=== PATIENT | male | born 1965 | race Caucasian/White ===

== ENCOUNTER 2017-06-24 15:24 | Inpatient (IN) | payer BC ==
[2017-06-24 17:33] LABS: INR-International Normal Ratio 1.1; PTT 30.1 SEC (22.9-36.1)
[2017-06-24 17:41] LABS: ALT (SGPT) 19 U/L (8-55); AST (SGOT) 21 U/L (5-34); Alkaline Phosphatase 79 U/L (40-150); Anion Gap 15 mmol/L (10-20); BUN (Urea Nitrogen) 26 mg/dL (8.9-20.6); Bilirubin, Total 0.2 mg/dL (0.2-1.2); Calc. Creatinine Clearance 0 mL/min (70-130); Calcium 9.8 mg/dL (7.8-10.44); Carbon Dioxide 25 mmol/L (22-29); Chloride 104 mmol/L (98-107); Estimated GFR-MDRD 41; Glucose 143 mg/dL (70-105); Potassium 4.8 mmol/L (3.5-5.1); Sodium 139 mmol/L (136-145)
[2017-06-24] MEDS ORDERED: Pantoprazole 40 MG VIAL ONE (17:41)
[2017-06-24 17:46] LABS: CKMB 1.1 ng/mL (0-6.6); Troponin I Less than 0.010 ng/mL (< 0.028)
[2017-06-24 17:48] LABS: #Lymphocytes 0.8 thou/uL (1.20-3.40); #Monocytes 0.2 thou/uL (0.11-0.59); #Neutrophils 7.3 thou/uL (1.40-6.50); %Basophils 0.1 % (0.0-1.0); %Eosinophils 0.2 % (0.0-10.0); %Lymphocytes 9.4 % (21.0-51.0); %Monocytes 2.2 % (0.0-10.0); Anisocytosis SLIGHT = 6-15 cells (100X) (0-5/hpf); Hypochromia SLIGHT = 6-15 cells (100X) (0-5/hpf); MDiff Complete? YES; Mean Corpuscular HGB CONC 29.8 g/dL (32.0-36.0); Mean Corpuscular Hemoglobin 22.1 pg (27.0-31.0); Mean Corpuscular Volume 74.3 fl (80.0-94.0); Mean Platelet Volume 9.2 fL (7.4-10.4); Microcytosis SLIGHT = 6-15 cells (100X) (0-5/hpf); Ovalocytes SLIGHT = 2-5 cells (100X) (0-1/hpf); Platelet Count 402 thou/uL (130-400); Poikilocytosis SLIGHT = 6-15 cells (100X) (0-5/hpf); RBC Distribution Width 17.8 % (11.5-14.5); Red Blood Cell (RBC) Count 3.62 mill/uL (4.70-6.10); White Blood Cell (WBC) Count 8.3 thou/uL (4.8-10.8)
[2017-06-24] MEDS ORDERED: Acetaminophen 325 MG TAB PO PRN (23:00)
[2017-06-24] MEDS ORDERED: Ondansetron ODT 4 MG TAB SL PRN (23:00)
[2017-06-24] MEDS ORDERED: Ondansetron HCl/PF 4 MG/2 ML Vial IVP PRN (23:00)
[2017-06-24 23:43] VITALS: BMI 42.1
[2017-06-25] MEDS ORDERED: Acetaminophen 500 MG TAB PO PRN (05:54)
[2017-06-25] MEDS ORDERED: Ondansetron HCl/PF 4 MG/2 ML Vial IVP PRN (05:54)
[2017-06-25] MEDS ORDERED: Ondansetron ODT 4 MG TAB PO PRN (05:54)
[2017-06-25] MEDS ORDERED: cloNIDine 0.1 MG TAB PO PRN (05:54)
[2017-06-25] MEDS ORDERED: hydrALAZINE 20 MG/ML VIAL SLOW IVP PRN (05:54)
[2017-06-25] MEDS: Sodium Chloride 0.9% 1,000 ML IV SCH ×2 (06:09→19:54)
[2017-06-25 06:38] LABS: Anion Gap 13 mmol/L (10-20); BUN (Urea Nitrogen) 27 mg/dL (8.9-20.6); Calc. Creatinine Clearance 86 mL/min (70-130); Calcium 9.3 mg/dL (7.8-10.44); Carbon Dioxide 27 mmol/L (22-29); Chloride 108 mmol/L (98-107); Estimated GFR-MDRD 42; Glucose 123 mg/dL (70-105); Iron 14 ug/dL (65-175); Iron Binding Capacity, Total 329 mcg/dL (261-462); Potassium 4.2 mmol/L (3.5-5.1); Sodium 144 mmol/L (136-145)
[2017-06-25 06:44] LABS: Band 2 % (5-11); Eosinophils 2 % (0-10); Hemoglobin 7.5 g/dL (14.0-18.0); Lymphocytes 34 % (21-51); MDiff Complete? YES; Mean Corpuscular HGB CONC 29.1 g/dL (32.0-36.0); Mean Corpuscular Hemoglobin 21.9 pg (27.0-31.0); Mean Corpuscular Volume 75.3 fl (80.0-94.0); Mean Platelet Volume 8.6 fL (7.4-10.4); Monocytes 4 % (0-10); Neutrophil 57 % (42-75); PLT Morphology Comment Appears Adequate; Platelet Count 387 thou/uL (130-400); RBC Distribution Width 17.5 % (11.5-14.5); White Blood Cell (WBC) Count 8.6 thou/uL (4.8-10.8)
--- NOTE | 2017-06-25 06:53 | HP ---
DATE OF ADMISSION: 06/25/2017 PRIMARY CARE PHYSICIAN: Dr. Judd. PRIMARY VASC TECH: Dr. Juan Moralez. CHIEF COMPLAINT: General fatigue and low blood count. HISTORY OF PRESENT ILLNESS: This is a 51-year-old male who presents to [facility] emergency department after a recent screening complete blood count through his primary cheese weigher office, showed a hemoglobin of 8. Patient's hemoglobin was apparently 14.8 in 04/2016 and currently in the 8 range as of 06/14/2017. Patient admits to increasing fatigue, palpitations, decreased activ ity and exercise tolerance. The patient also admits to severe heartburn, previously taking Prilosec, now taking [id number] remedies after his cheese weigher discontinued the Prilosec due to his chr onic kidney disease. The patient states he underwent kidney transplant 41 years prior to this evalua tion and has been stable and monitored on an outpatient basis by Dr. Juan Moralez. The patient has been taking intermittent aspirin therapy for joint and back pain as well as prednisone and Persantin e. Patient is unsure of any change to his stool color or marc blood in his stool. The patient dewayne ed any hematemesis, weight loss, or family history of colon cancer. The patient denies any prior end oscopy in the past. In the emergency room, the patient underwent screening CBC evaluation showing he moglobin of 8.0 with an MCV of 74. Coagulation panel was within normal limits and creatinine noted a t 1.77. Stool Hemoccult was negative x1 in the emergency department. The patient received Protonix 80 mg IV x1 dose and transferred to the telemetry unit for evaluation. PAST MEDICAL HISTORY: 1. Chronic kidney disease stage 3. 2. Status post renal transplant. 3. Osteoarthritis secondary to half-way steroid therapy. PAST SURGICAL HISTORY: Status post renal transplant. CURRENT MEDICATIONS: 1. Aspirin 325 mg p.o. daily. 2. Azathioprine 150 mg p.o. daily. 3. Dipyridamole 50 mg p.o. daily and 75 mg p.o. at bedtime. 4. Prednisone 30 mg p.o. q.48 hours. 5. Sodium bicarbonate two tablets p.o. q.4 hours p.r.n. ALLERGIES: No known drug allergies. FAMILY HISTORY: No inheritable diseases per patient report. SOCIAL HISTORY: Patient is , residing in the [facility]. Occasional alcohol use. N o illicit drug use. REVIEW OF SYSTEMS: The following complete review of systems was negative, unless otherwise mentioned in the HPI or below: Constitutional: Weight loss or gain, ability to conduct usual activities. Skin: Rash, itching. Eyes: Double vision, pain. ENT/Mouth: Nose bleeding, neck stiffness, pain, tenderness. Cardiovascular: Palpitations, dyspnea on exertion, orthopnea. Respiratory: Shortness of breath, wheezing, cough, hemoptysis, fever or night sweats. Gastrointestinal: Poor appetite, abdominal pain, heartburn, nausea, vomiting, constipation, or diarr hea. Genitourinary: Urgency, frequency, dysuria, nocturia. Musculoskeletal: Pain, swelling. Neurologic/Psychiatric: Anxiety, depression. Allergy/Immunologic: Skin rash, bleeding tendency. PHYSICAL EXAMINATION: VITAL SIGNS: Currently, blood pressure 156/65, pulse 111, respiratory rate 18, temperature 98.3 degr ees Fahrenheit, O2 saturation 96% on room air. GENERAL APPEARANCE: This is a 51-year-old male, alert and oriented x3, pleasant, conversan t, in no acute distress. HEENT: Pupils are equal, round, and reactive to light and accommodation. Extraocular muscles are in tact. No scleral icterus, no conjunctival injection. Nares patent. OP is clear. Teeth in fair rep air. NECK: Supple, no cervical adenopathy, no thyromegaly, no carotid bruits, no JVD appreciated. Cervic al spine with full active and passive range of motion. No meningeal signs appreciated. CHEST: Lungs are clear to auscultation bilaterally. CARDIOVASCULAR: S1, S2 with tachycardia. ABDOMEN: Protuberant, soft, nontender, nondistended. Bowel sounds are positive in all four quadrant s. There is no hepatosplenomegaly, no abdominal bruits, no rebound or guarding appreciated. EXTREMITIES: Warm and dry with good turgor. No clubbing, cyanosis or asymmetric edema appreciated. Pulses are palpable distally at the dorsalis pedis, posterior tibial, and popliteal arteries bilater ally. Capillary refill less than 2 seconds. NEUROLOGIC: Cranial nerves II through XII are grossly intact. No focal or lateralizing signs apprec iated. PERTINENT LABORATORY DATA AND X-RAY FINDINGS: Sodium 139, potassium 4.8, chloride 104, CO2 of 25, BU N 26, creatinine 1.77 with estimated GFR of 41, glucose 143, calcium 9.8. LFTs within normal limits. Albumin 4.0. CBC showed a white blood cell count 8.3, hemoglobin 8, hematocrit 27, MCV 74, platele t count 402 with 88% neutrophils. PT 14, INR 1.1, PTT 30.1. Stool Hemoccult negative x1 on 06/24/20 17. EKG dated 06/24/2017 by my interpretation shows sinus tachycardia with heart rates in the 115s. Normal R-wave progression noted in the precordial leads. Normal axis. No acute ST-T wave changes a ppreciated. ASSESSMENT AND PLAN: 1. Question of gastrointestinal bleed. The patient will be admitted to the telemetry unit. We will continue serial H&H monitoring. Consult GI service for evaluation. The patient likely will need en doscopy to include upper and lower endoscopy. Continue Pepcid 20 mg IV q.12 hours. N.p.o. except fo r medications. Continue intravenous normal saline at 100 mL per hour. 2. Acute/subacute microcytic anemia. Continue serial H&H monitoring as outlined previously. Check stool guaiacs x1. Continue intravenous normal saline as outlined previously. Continue telemetry mon itoring. 3. Sinus tachycardia. Continue IV fluids as stated previously. Suspect tachycardia secondary to an emia. 4. Chronic kidney disease stage 3. Avoid nephrotoxic agents and contrast media. Serial creatinine monitoring. 5. Elevated blood pressure. No formal diagnosis of hypertension. We will continue serial blood pre ssure monitoring and treat accordingly. 6. Chronic immunosuppressive therapy. We will continue close monitoring of patient's overall clinic al status. Resume home medication regimen when taking p.o. intake. 7. Prophylaxis. Sequential compression devices while in bed. Pepcid 20 mg IV q.12 hours. 8. Code status is full. Surrogate medical decision maker is the patient's spouse.
[2017-06-25] MEDS ORDERED: Famotidine/PF 20 mg/2ml Vial SLOW IVP SCH (09:00)
[2017-06-25] MEDS: azaTHIOprine 50 MG TAB PO SCH (09:21)
[2017-06-25] MEDS: Pantoprazole 40 MG VIAL IVP SCH ×2 (09:23→19:53)
[2017-06-25] MEDS ORDERED: GoLYTELY 4,000 ml Bottle PO SCH (18:00)
--- NOTE | 2017-06-25 19:34 | PDOC.PN ---
- Subjective Encounter Start Date: 06/25/17 Encounter Start Time: 10:30 Patient seen and examined. No new complaints. No overnight events. Feels weak. No CP/SOB. - Objective Resuscitation Status: Resuscitation Status FULL:Full Resuscitation MAR Reviewed: Yes Vital Signs & Weight: Vital Signs (12 hours) Temp Pulse Resp BP BP Pulse Ox 06/25/17 16:20 97.9 F 106 H 22 H 125/82 96 06/25/17 13:38 97.9 F 107 H 16 139/83 95 06/25/17 07:52 97.9 F 110 H 16 129/69 96 I&O: 06/24/17 06/25/17 06/26/17 06:59 06:59 06:59 Intake Total 0 Output Total 600 Balance -600 Result Diagrams: 06/25/17 06:05 06/25/17 06:05 Additional Labs: Accuchecks 06/25/17 06:32 POC Glucose 152 H Microbiology 06/25/17 09:20 Stool - Formed Stool Occult Blood (AMEENA) - Final 06/24/17 19:28 Stool - Pending Stool Occult Blood (AMEENA) - Final Laboratory Tests 06/25/17 06/25/17 06/25/17 06:05 06:08 06:08 Retic Count 3.0 H Iron 14 L TIBC 329 Ferritin 6.89 L EKG Reviewed by me: Yes (Tele ST) Phys Exam - Physical Examination Constitutional: NAD Respiratory: no wheezing, no rales, no rhonchi, clear to auscultation bilateral Cardiovascular: RRR, no rub tachycardic, no rubs/gallops Gastrointestinal: soft, non-tender, no distention, positive bowel sounds Musculoskeletal: no edema Neurological: non-focal, moves all 4 limbs Psychiatric: normal affect, A&O x 3 Dx/Plan - Plan DVT proph w/SCDs IMPRESSION: 1. GI bleeding 2. Anemia due to GI blood loss 3. Iron deficiency anemia 4. CKD 3 5. h/o Renal transplant on immunosuppressant 6. Morbid Obesity BMI >40 7. Sinus tachycardia due to #1 PLAN: * Can have ice chips * Await GI input * Change Pepcid to Protonix * HH in AM * IV Venofer (Dr Moralez will order - I d/w with Dr Moralez) * Vitals Q4 * Tele monitoring Review of Systems - Medications/Allergies Allergies/Adverse Reactions: Allergies Allergy/AdvReac Type Severity Reaction Status Date / Time No Known Allergies Allergy Verified 06/24/17 23:39 Medications: Current Medications Acetaminophen (Tylenol) 1,000 mg PO Q6H PRN PRN Reason: Headache/Fever or Mild Pain Azathioprine (Imuran) 150 mg PO DAILY [facility] Last Admin: 06/25/17 09:21 Dose: 150 mg Clonidine (Catapres) 0.1 mg PO Q4H PRN PRN Reason: Systolic BP > 180 Hydralazine HCl (Apresoline) 10 mg SLOW IVP Q4H PRN PRN Reason: Systolic BP > 180 Sodium Chloride (Normal Saline 0.9%) 1,000 mls @ 100 mls/hr IV .Q10H [facility] Last Admin: 06/25/17 06:09 Dose: 1,000 mls Ondansetron HCl (Zofran Odt) 4 mg PO Q6H PRN PRN Reason: Nausea/Vomiting Ondansetron HCl (Zofran) 4 mg IVP Q6H PRN PRN Reason: Nausea/Vomiting Pantoprazole Sodium (Protonix) 40 mg IVP Q12HR [facility] Last Admin: 06/25/17 09:23 Dose: 40 mg Polyethylene Glycol/Electrolytes (Golytely) 4,000 ml PO 1800 [facility] Stop: 06/25/17 22:00 Prednisone (Prednisone) 30 mg PO Q2D@0800 [facility] Sodium Chloride (Flush - Normal Saline) 10 ml IVF PRN PRN PRN Reason: Saline Flush
--- NOTE | 2017-06-26 00:09 | CON ---
DATE OF CONSULTATION: 06/25/2017 HISTORY OF PRESENT ILLNESS: Mr. Taylor is a 51-year-old who was admitted, sent to the hospital by his cigarette machine operator, Dr. Juan Moralez, for severe symptomatic anemia. He reports that in retrospect sin e about November, he has been feeling a little bit weaker than what he typically expects. He had routin e labs and was called and told to come to the emergency room. He had a hemoglobin of 14.8 in 04/2016 , but this year, it is around 8, MCV is low. He has had some increasing fatigue, palpitations, decre ased exercise and activity tolerance; however, he has had no melena, hematochezia, or hematemesis. Minna watkins does have some severe history of heartburn at times. He was on Prilosec previously, but this was s topped as there was some concern that possibly could cause kidney damage. He only has one kidney. Minna watkins had a renal transplant 41 years ago when he had kidney failure as a child. He had been taking some intermittent aspirin for some low back pain, also some prednisone, Persantine. He has had no black stools, melena, hematemesis, or marc and bloody stools. He has had no change in appetite or weight. He has no family history of ulcers or GI malignancies, never had a colonoscopy or upper endoscopy. PAST MEDICAL HISTORY: Chronic kidney disease stage 3, status post renal transplant 41 years ago, ost eoarthritis. PAST SURGICAL HISTORY: Renal transplant. CURRENT MEDICATIONS: Aspirin 325 daily, azathioprine 150 mg daily, 50 mg daily, 75 mg at bedt mor, prednisone 30 mg q.48 h., sodium bicarbonate 2 tablets q.4 h. ALLERGIES: None known. FAMILY HISTORY: As above. No history of colorectal cancer or liver disease. SOCIAL HISTORY: The patient is . His spouse is with him here. REVIEW OF SYSTEMS: Negative for chest pain, dyspnea on exertion, or acute bleeding. No change in ap petite or bowel movements. PHYSICAL EXAMINATION: VITAL SIGNS: Pulse 107, blood pressure is 139/93, temperature 96. LUNGS: Clear. HEART: Regular without clicks or murmurs. ABDOMEN: Soft, nontender, without any palpable hepatosplenomegaly. EXTREMITIES: No clubbing, cyanosis, or edema. PERIANAL: He does have a little wart around the perianal skin. It is unclear if this is a true wart or if this is a skin tag. It can be looked at more closely at the time of his endoscopy. LABORATORY DATA: White count is 8.6, hemoglobin is 8 on admission, 7.5 today, MCV 75. Comprehensive metabolic profile is normal. BUN and creatinine are 27 and 1.73. Iron was 14. Liver function test s were normal. ASSESSMENT: 1. Iron-deficiency anemia. 2. End-stage renal disease. 3. Perianal skin tag. Maybe looked at little more closely to make sure if this is not condyloma at time of endoscopy. PLAN: Upper and lower endoscopy tomorrow to evaluate the possible source of GI blood loss and iron-d eficiency anemia in this gentleman.
[2017-06-26] MEDS: Sodium Chloride 0.9% 1,000 ML IV SCH ×3 (01:36→23:37)
[2017-06-26 06:17] LABS: Hemoglobin 7.4 g/dL (14.0-18.0); Platelet Count 366 thou/uL (130-400)
[2017-06-26] MEDS ORDERED: predniSONE 5 MG TAB PO SCH (08:00)
[2017-06-26] MEDS: Pantoprazole 40 MG VIAL IVP SCH ×2 (08:44→20:20)
[2017-06-26] MEDS: azaTHIOprine 50 MG TAB PO SCH (08:45)
[2017-06-26] MEDS ORDERED: Lidocaine 1% PF 5 ML VIAL ONE (12:23)
[2017-06-26] MEDS ORDERED: PROPOFOL 200 MG/20 ML VIAL ONE (12:23)
[2017-06-26] MEDS ORDERED: Fentanyl 100 MCG/2 ML VIAL ONE (13:14)
--- NOTE | 2017-06-26 13:28 | EKG ---
Test Reason : Blood Pressure : / mmHG Vent. Rate : 119 BPM Atrial Rate : 119 BPM P-R Int : 162 ms QRS Dur : 082 ms QT Int : 342 ms P-R-T Axes : 049 049 063 degrees QTc Int : 481 ms Sinus tachycardia with Premature supraventricular complexes Nonspecific T wave abnormality Abnormal ECG Confirmed by ANGELA ONEIL ([id number]), video effects editor MAHIN JUAN ([id number]) on 06/26/2017 1:27:33 PM Referred By: Confirmed By:ANGELA ONEIL
--- NOTE | 2017-06-26 16:08 | OP ---
DATE OF PROCEDURE: 06/26/2017 PROCEDURE: Esophagogastroduodenoscopy and colonoscopy with snare polypectomy and biopsy and submucos al injection. Hemoclip of the polypectomy site for control of hemorrhage was performed. PROCEDURE IN DETAIL: Informed consent was obtained from the patient. The patient was sedated with t otal intravenous anesthesia. The bite block was placed and the endoscope was advanced easily to the second portion of the duodenum and retroflexion was performed in the stomach. The esophagus was norm al. The GE junction was normal. The stomach was normal including retroflexed views. The pylorus wa s normal. There is mild nonerosive duodenitis in the first portion of the duodenum. The second port ion of the duodenum was normal. The air was suctioned from the stomach. The patient was turned arou nd. Rectal exam revealed a wart in the perianal area. This measures around 7 mm estimated. The rec claudio exam was otherwise normal. The colonoscope was advanced to the cecum where the ileocecal valve a nd appendiceal orifice were clearly identified. The preparation quality was good overall. There was a 1 cm polyp in the distal ascending colon. This was removed by snare cautery polypectomy in two pi eces. Two Hemoclips were placed over the polypectomy site to control immediate bleeding. Good hemos tasis was confirmed. There was a 5 cm mass at the hepatic flexure. Multiple biopsies were obtained. A tattoo was placed on the distal margin of the mass. The tattoo was placed at 2 sites across from each other. The remainder of the colonic mucosa was normal. Retroflexed views in the rectum were n ormal. IMPRESSION: 1. Nonerosive duodenitis. 2. Small wart in the perianal area. 3. A 1-cm polyp removed from the distal ascending colon. 4. Mass at the hepatic flexure, biopsied and marked with tattoo. 5. Moderate diverticulosis of the sigmoid and descending colon. RECOMMENDATIONS: 1. Check CEA. 2. CT scan of the abdomen and pelvis with contrast to evaluate for metastatic disease. His estimate d GFR is 42. I will check with his machine captain, Dr. Moralez prior to ordering that CT. 3. General Surgery consultation.
--- NOTE | 2017-06-26 18:49 | CT ---
CT OF THE ABDOMEN AND PELVIS WITH IV CONTRAST 06/26/17 INDICATION: History of hepatic flexure mass seen on colonoscopy and renal transplant. COMPARISON: None. FINDINGS: There is mild bibasilar atelectasis. There is fatty infiltration of the liver. The spleen, pancreas a nd adrenal glands are normal appearing. The havasupai kidneys are atrophic. No free fluid is evident. There is a right pelvic renal transplant with multiple peripelvic cysts. No hydronephrosis is evident . There is a 3.5 x 3.4 cm intraluminal mass involving the hepatic flexure. No definite pericolonic infl ammatory changes evident. No enlarged lymph nodes are seen near the hepatic flexure. There is scattered degenerative and osteoarthritic change. IMPRESSION: 1. Hepatic flexure mass consistent with patient's known colonic malignancy. 2. No CT evidence to suggest regional or metastatic disease of the abdomen and pelvis. 3. Fatty liver. 4. Right pelvic renal transplant with multiple peripelvic cysts. 5. Atrophic havasupai kidneys. POS: JASVIR
[2017-06-26] MEDS ORDERED: metroNIDAZOLE 500 MG TAB PO SCH (19:00)
[2017-06-26] MEDS ORDERED: Neomycin 500 mg Tablet PO SCH (20:00)
--- NOTE | 2017-06-26 21:34 | CON ---
DATE OF CONSULTATION: 06/26/2017 REASON FOR CONSULTATION: Hepatic flexure of colon mass. HISTORY OF PRESENT ILLNESS: This is a 51-year-old male with a history of kidney transplant as a chil d who now presents with a history of increased fatigue, dizziness, found to have a low hemoglobin by his routing clerk, and admitted to the hospital for further workup. Colonoscopy today by Dr. Benton dior hepatic flexure colon mass that was tattooed and biopsied. He has had CT which shows the mass in the right colon, but no evidence of metastatic disease. I have been asked to see him for elective colon resection. He has no pain, no obvious blood in stool, no weight loss, fever, chills, anorexia . PAST MEDICAL HISTORY: Includes chronic kidney disease and transplanted organ, osteoarthritis. PAST SURGICAL HISTORY: Renal transplant right pelvis. MEDICINES TAKEN DAILY: Aspirin, azathioprine, dipyridamole, prednisone, sodium bicarbonate. ALLERGIES: No known drug allergies. SOCIAL HISTORY: , lives in [place]. No alcohol or other drugs. REVIEW OF SYSTEMS: Ten system review of systems otherwise negative unless described above. PHYSICAL EXAMINATION: HEENT: Sclerae are anicteric. Oropharynx clear. NECK: No lymphadenopathy. LUNGS: Clear. HEART: Regular rate and rhythm. ABDOMEN: Soft, protuberant. Well-healed right lower quadrant oblique incision, a few paramedian inc isions. No obvious hernias. EXTREMITIES: No ischemia or edema to extremities. LABORATORY AND X-RAY FINDINGS: Hemoglobin 7.4, creatinine 1.73. CT scan, no obvious metastatic dise ase. ASSESSMENT: Right colon mass, likely colon cancer. PLAN: Elective laparoscopic right colectomy. Risks, benefits, alternative treatments were discussed . Ideally, this would be something I could do when I return to town in a weak, we will arrange for t hat to be done. I have written prescriptions for his colon prep to be done the day before surgery, a ntibiotics and the mechanical prep. We will have 1 unit transfuse before discharge since he is sympt omatic.
[2017-06-27 03:12] LABS: Bilirubin Negative (Negative); Blood, Urine Negative (Negative); Clarity CLEAR (Clear); Glucose, Urine (Dipstick) Negative (Negative); Leukocyte Negative (Negative); Nitrite Negative (Negative); Protein, Urine (Dipstick) 100 mg/dL (Neg-Trace); Specific Gravity, Urine 1.033 (1.002-1.036); Urobilinogen 0.2 mg/dL (0.2-1.0)
[2017-06-27 03:15] LABS: Bacteria/HPF None Seen HPF (None Seen); Hyaline Casts/LPF 0-3 HYALINE CAST LPF (0-3 Hyaline); RBC/HPF 0-3 HPF (0-3); Squamous Epithelial None Seen HPF (0-3); WBC/HPF 0-3 HPF (0-3)
[2017-06-27 06:52] LABS: Albumin 3.5 g/dL (3.5-5.0); Anion Gap 12 mmol/L (10-20); BUN (Urea Nitrogen) 16 mg/dL (8.9-20.6); BUN/Creatinine Ratio 12.21; Calc. Creatinine Clearance 116 mL/min (70-130); Calcium 7.7 mg/dL (7.8-10.44); Carbon Dioxide 25 mmol/L (22-29); Chloride 111 mmol/L (98-107); Estimated GFR-MDRD 58; Glucose 109 mg/dL (70-105); Phosphorus 3.1 mg/dL (2.3-4.7); Potassium 4.3 mmol/L (3.5-5.1); Sodium 144 mmol/L (136-145)
[2017-06-27] MEDS: azaTHIOprine 50 MG TAB PO SCH (08:03)
[2017-06-27] MEDS: Sodium Chloride 0.9% 1,000 ML IV SCH (08:03)
[2017-06-27] MEDS: Pantoprazole 40 MG VIAL IVP SCH (08:03)
[2017-06-27 08:25] LABS: #Eosinphils 0.2 thou/uL (0.0-0.7); #Lymphocytes 1.5 thou/uL (1.20-3.40); #Monocytes 0.9 thou/uL (0.11-0.59); #Neutrophils 5.7 thou/uL (1.40-6.50); %Basophils 0.3 % (0.0-1.0); %Eosinophils 2.4 % (0.0-10.0); %Monocytes 11.3 % (0.0-10.0); Hemoglobin 7.8 g/dL (14.0-18.0); MDiff Complete? YES; Mean Corpuscular HGB CONC 29.6 g/dL (32.0-36.0); Mean Corpuscular Hemoglobin 23.1 pg (27.0-31.0); Mean Corpuscular Volume 77.9 fl (80.0-94.0); Mean Platelet Volume 8.6 fL (7.4-10.4); Microcytosis SLIGHT = 6-15 cells (100X) (0-5/hpf); PLT Morphology Comment Appears Adequate; Platelet Count 366 thou/uL (130-400); Polychromasia SLIGHT = 2-3 cells (100X) (0-2/hpf); RBC Distribution Width 18.9 % (11.5-14.5); Red Blood Cell (RBC) Count 3.39 mill/uL (4.70-6.10); White Blood Cell (WBC) Count 8.3 thou/uL (4.8-10.8)
[2017-06-27] MEDS ORDERED: metroNIDAZOLE 500 MG TAB PO SCH (09:00)
--- NOTE | 2017-06-27 09:37 | PRG ---
DATE OF SERVICE: 06/27/2017 SUBJECTIVE: Mr. Taylor has no complaints. He had 1 unit of blood last night and he feels better. No abdominal pain, no bloody stools, hemodynamically stable. Abdomen exam is unchanged. LABORATORY DATA: Hemoglobin this morning is 7.8. ASSESSMENT: Hepatic flexure of colon mass, likely malignant. CT negative for metastatic disease. PLAN: I wrote prescriptions for his prep, it is in the chart. He will be discharged today. My offi ce is going to set him up for to come back in a week for his elective laparoscopic right colectomy.
--- NOTE | 2017-06-27 12:03 | PRG ---
DATE OF SERVICE: 06/27/2017 SUBJECTIVE: Mr. Taylor has no acute complaints today. He feels better after the blood transfusion. OBJECTIVE: VITAL SIGNS: Temperature 98.4, pulse 109, and blood pressure 132/68. GENERAL: He is in no acute distress, awake, and alert. LUNGS: Clear to auscultation bilaterally. HEART: Regular rate and rhythm, mildly tachycardic. ABDOMEN: Soft, nontender, nondistended. Bowel sounds are present. EXTREMITIES: No lower extremity edema. LABORATORY DATA: Creatinine 1.31, hemoglobin is 7.8 after transfusion up from 7.4 yesterday. IMPRESSION: 1. Right-sided colon mass, most likely malignant tumor. CT scan does not show signs of metastatic d isease. 2. Iron deficiency anemia. RECOMMENDATIONS: 1. We would give another unit of blood and he still tachycardic and he had marked clinical improveme nt after the first unit and that he feels much more energetic following the last unit. 2. Plan is for colon resection. This is to be done next week when Dr. Goldman returns. The patient should be able to discharge home today.
[2017-06-27 15:02] VITALS: BP 166/80; TEMP 98.1
--- NOTE | 2017-06-27 18:25 | DIS ---
DATE OF ADMISSION: 06/24/2017 DATE OF DISCHARGE: 06/27/2017 ADMITTING DIAGNOSIS: Acute blood loss from lower gastrointestinal tract. DISCHARGE DIAGNOSIS: Mass in the colon causing the gastrointestinal bleed. SECONDARY DIAGNOSES: 1. Anemia of acute blood loss. 2. Chronic kidney disease stage 3. 3. Elevated blood pressures. 4. Chronic immunosuppressive therapy. HISTORY OF PRESENT ILLNESS AND HOSPITAL COURSE: In brief, this is a 51-year-old male who p resented to [facility] Emergency Department for screening of his complete blood count and wa s noted to have drop in hemoglobin to 8, which was actually 14.8 last month. The patient was also no martha to have worsening fatigue and decreased activity and reduced exercise tolerance. The patient den ies taking any NSAIDs. The patient denies having any black stools or any marc blood in the stool. He denies having any endoscopy or colonoscopies in the past. Based on his drop in the hemoglobin, st ool occult was done which was negative initially in the ER, but then because of his complicated histo ry, GI was consulted, and the patient underwent upper GI and lower GI endoscopy. Upper GI endoscopy was completely normal and the patient was proceeded with a lower GI and they did found a mass in the colon and plan was for the colon resection through robotics as Dr. Goldman was not available who is t he only surgeon who does antibiotic procedures. The patient was to return back next week to get the procedure done, that is on of the following week. The patient had a CT of the abdomen to ru le out any metastatic lesions, which ruled out any evidence of metastatic disease. The patient had a drop in hemoglobin to 7.8, so he was started on 2 units of blood transfusion. The patient is discha rged after the blood transfusion. The patient was stable on the day of discharge. He had initially elevated blood pressures, but it was most likely due to the wrong size of the cuff. The patient was stable and was discharged home in stable condition. CONSULTANTS INVOLVED IN HIS CARE: Dr. Juan José Bhardwaj from Gastroenterology and Dr. Heladio Raygoza from Hematology. PHYSICAL EXAMINATION: On the day of discharge: VITAL SIGNS: Blood pressures are 134/64, heart rate is 60, respirations is 98% on room air. GENERAL: The patient is moderately built and moderately nourished. He does not appear to be in acut e distress at this time. He is alert, oriented x3. HEENT: Atraumatic, normocephalic. PERRLA. Extraocular movements intact. CARDIOVASCULAR: S1, S2 normal. No murmurs, rubs or gallops. LUNGS: Bilateral air entry was equal. No wheezing, no crackles. ABDOMEN: Distended, nontender, no guarding, no rebound tenderness. Bowel sounds normal. DISCHARGE MEDICATIONS: 1. Azathioprine 50 mg 1 tablet daily. 2. Prednisone 5 mg tablet, the patient takes 6 tablets every 48 hours. 3. Aspirin 325 mg daily. 4. Dipyridamole 50 mg tablet daily and 75 mg tablet in the nighttime. 5. Sodium bicarbonate 2 tablets every 4 hours. DISCHARGE INSTRUCTIONS: 1. Continue activity as tolerated. Advised to follow up with General Surgery next for a ro botic colon resection. 2. Follow up with GI in 1-2 weeks and advised the patient to follow up with primary care physician lacho hale 2 days to check on his blood pressures. 3. Continue with the general diet. I spent 35 minutes with this patient.
--- NOTE | 2017-07-02 10:03 | PQF ---
CARLEEMITCHELL DANILO PRATT DO [id number] CLINICAL DOCUMENTATION CLARIFICATION FORM: POST DISCHARGE Based on the pathologic diagnosis dated 06/29/17, "Moderately Differentiated Colonic Adenocarcinoma" has been reported. Please clarify if "Mass in the colon " stated on DC summary can be further specified. PATH REPORT 06/29/17; "Large intestine, hepatic flexure mass, endoscopic biopsy: Invasive moderately differentiated Colonic Adenocarcinoma." PN 06/27/17 GI; "Right-sided colon mass, most likely malignant tumor". "Plan is for colon resection". PN 06/27/17 General Surg; "Hepatic flexure of colon mass, likely malignant." Please check appropriate box(s): [ ] I concur with the pathological findings. [ ] I do not concur with the pathological findings. [ ] Other diagnosis [ ] Unable to determine In addition, please specify: Present on Admission (POA): [ ] Yes [ ] No [ ] Unable to determine Please exercise your independent, professional judgment in responding to the clarification form. Clinical indicators are provided on the bottom of this form for your review. Thank you. CLINICAL INDICATORS - SIGNS / SYMPTOMS/ LABS Acute blood loss anemia GI hemorrhage General fatigue Hemoglobin 8, Hematocrit 27, MCV 74. RISK FACTORS Chronic Immunosuppressive therapy Kidney transplant status TREATMENT Blood transfusion EGD Colonoscopy with biopsy and polypectomy Planned colon resection CT abdomen, r/o metastasis (This form is maintained as a part of the permanent medical record) 2014 [email or web address]. All Rights Reserved [email or web address] [phone] Old query unanswered. MTDD
== END 2017-06-27 15:09 | disposition home or self-care (01) | DRG 378 ==
LOC: ERS 15:24 → 2NO 22:52
PROVIDERS: ADMIT Family Medicine; ATTEND Family Medicine
PROC: 0DBL8ZX Excision of Transverse Colon, Via Natural or Artificial Opening Endoscopic, Diagnostic (ICD-10-PCS; principal; 2017-06-26)
PROC: 0DBK8ZZ Excision of Ascending Colon, Via Natural or Artificial Opening Endoscopic (ICD-10-PCS; 2017-06-26)
PROC: 0DJ08ZZ Inspection of Upper Intestinal Tract, Via Natural or Artificial Opening Endoscopic (ICD-10-PCS; 2017-06-26)
PROC: 30233N1 Transfusion of Nonautologous Red Blood Cells into Peripheral Vein, Percutaneous Approach (ICD-10-PCS; 2017-06-26)
PROC: 30233N1 Transfusion of Nonautologous Red Blood Cells into Peripheral Vein, Percutaneous Approach (ICD-10-PCS; 2017-06-27)
DX: K92.2 Gastrointestinal hemorrhage, unspecified (principal); D62 Acute posthemorrhagic anemia; E66.01 Morbid (severe) obesity due to excess calories; N18.3 Chronic kidney disease, stage 3 (moderate); Z94.0 Kidney transplant status; Z68.41 Body mass index [BMI] 40.0-44.9, adult; A63.0 Anogenital (venereal) warts; D50.9 Iron deficiency anemia, unspecified; K63.9 Disease of intestine, unspecified; Z79.899 Other long term (current) drug therapy; R03.0 Elevated blood-pressure reading, without diagnosis of hypertension; K29.80 Duodenitis without bleeding; K63.5 Polyp of colon; M19.93 Secondary osteoarthritis, unspecified site; T38.0X5S Adverse effect of glucocorticoids and synthetic analogues, sequela; K57.30 Diverticulosis of large intestine without perforation or abscess without bleeding
CPT/HCPCS: 36415; 36416; 36430; 74177; 80048; 80053; 80069; 81003; 81015; 82274; 82378; 82553; 82570; 82728; 83540; 83550; 84484; 85007; 85014; 85018; 85025; 85027; 85046; 85049; 85610; 85730; 86850; 86900; 86901; 88305; 93005; 96374; C9113; J2001; J2704; J3010; J7500; P9016

== ENCOUNTER 2017-07-02 09:56 | Outpatient (CLI) | payer BC ==
[2017-07-02 11:06] LABS: #Eosinphils 0.2 thou/uL (0.0-0.7); #Monocytes 0.5 thou/uL (0.11-0.59); #Neutrophils 7.3 thou/uL (1.40-6.50); %Basophils 0.4 % (0.0-1.0); %Eosinophils 1.7 % (0.0-10.0); %Lymphocytes 10.8 % (21.0-51.0); %Monocytes 5.3 % (0.0-10.0); %Neutrophils 81.7 % (42.0-75.0); Hemoglobin 10.7 g/dL (14.0-18.0); Mean Corpuscular HGB CONC 29.8 g/dL (32.0-36.0); Mean Corpuscular Hemoglobin 23.1 pg (27.0-31.0); Mean Corpuscular Volume 77.7 fl (80.0-94.0); Platelet Count 368 thou/uL (130-400); RBC Distribution Width 19.1 % (11.5-14.5); Red Blood Cell (RBC) Count 4.63 mill/uL (4.70-6.10)
[2017-07-02 11:29] LABS: Hemoglobin A1c 5.5 % (4.0-6.0)
[2017-07-02 11:36] LABS: Anion Gap 13 mmol/L (10-20); BUN (Urea Nitrogen) 29 mg/dL (8.9-20.6); Calc. Creatinine Clearance 0 mL/min (70-130); Calcium 9.6 mg/dL (7.8-10.44); Carbon Dioxide 25 mmol/L (22-29); Chloride 104 mmol/L (98-107); Estimated GFR-MDRD 40; Glucose 109 mg/dL (70-105); Potassium 4.9 mmol/L (3.5-5.1); Sodium 137 mmol/L (136-145)
== END 2017-07-02 09:57 | disposition home or self-care (01) ==
LOC: LABBT 09:56
PROVIDERS: ATTEND Surgery
DX: Z01.812 Encounter for preprocedural laboratory examination (principal); K63.89 Other specified diseases of intestine
CPT/HCPCS: 80048; 83036; 85025

== ENCOUNTER 2017-07-02 10:15 | Inpatient (IN) | payer BC ==
--- NOTE | 2017-07-05 10:44 | HP ---
CHIEF COMPLAINT: Tumor. HISTORY OF PRESENT ILLNESS: This is a 51-year-old male with a history of recent GI bleed who present s with the colonoscopy showing hepatic flexure of colon mass. Biopsy reveals moderately differentiat ed invasive adenocarcinoma. He presents for colon resection. CT scan showed no obvious metastatic d isease. PAST MEDICAL HISTORY: Includes; 1. Stage 3 chronic kidney disease. 2. Status post renal transplant. 3. Sequelae of long-term steroid use. PAST SURGICAL HISTORY: Renal transplant, right pelvis. There are well-healed open peritoneal dialys is catheter incisions without hernia. MEDICINES: Aspirin, azathioprine, dipyridamole, prednisone and sodium bicarbonate. ALLERGIES: No known drug allergies. SOCIAL HISTORY: . Occasional alcohol. No other drugs. No smoking. REVIEW OF SYSTEMS: Otherwise, negative unless described above. PHYSICAL EXAMINATION: HEENT: Sclerae are anicteric. Oropharynx clear. NECK: No lymphadenopathy. CHEST: Clear. HEART: Regular rate and rhythm. ABDOMEN: Soft, protuberant. EXTREMITIES: No ischemia or edema to extremities. LABORATORY AND X-RAY FINDINGS: Hemoglobin is 10 now and platelet count is 368. Creatinine is 1.8, w hich is his norm. Pathology from biopsy reveals moderately differentiated adenocarcinoma. CT on shows hepatic flexure mass, no CT evidence of metastatic disease, right pelvic renal transplant, f atty liver, atrophic [place] kidneys. ASSESSMENT: 1. Colon cancer, clinical stage T2N0M0. 2. History of renal transplant, on chronic steroids. PLAN: Laparoscopic right colectomy. Risks, benefits, alternatives discussed. He underwent electromechanical technologist al and antibiotic bowel prep.
[2017-07-05] MEDS ORDERED: Bupivacaine/Epinephrine 0.25% 30 ML VIAL ONE (10:55)
[2017-07-05 10:57] LABS: #Eosinphils 0.2 thou/uL (0.0-0.7); #Lymphocytes 1.8 thou/uL (1.20-3.40); #Neutrophils 5.1 thou/uL (1.40-6.50); %Basophils 0.1 % (0.0-1.0); %Eosinophils 2.2 % (0.0-10.0); %Neutrophils 63.7 % (42.0-75.0); Hemoglobin 10.3 g/dL (14.0-18.0); Mean Corpuscular HGB CONC 30.2 g/dL (32.0-36.0); Mean Corpuscular Hemoglobin 23.2 pg (27.0-31.0); Mean Corpuscular Volume 76.9 fl (80.0-94.0); Mean Platelet Volume 9.4 fL (7.4-10.4); Platelet Count 383 thou/uL (130-400); RBC Distribution Width 19.3 % (11.5-14.5); Red Blood Cell (RBC) Count 4.46 mill/uL (4.70-6.10)
[2017-07-05] MEDS ORDERED: cefOXitin 2 GM, Syringe 1 ML in Sterile Water 10 ML SLOW IVP SCH (11:00)
[2017-07-05] MEDS ORDERED: Midazolam HCl 2 mg/2 ml Vial ONE ×2 (11:45→11:49)
[2017-07-05] MEDS ORDERED: Indocyanine Green 25 MG/10 ML VIAL ONE (11:45)
[2017-07-05] MEDS ORDERED: Ketamine 50 MG/ML VIAL ONE (11:45)
[2017-07-05] MEDS ORDERED: Fentanyl 100 MCG/2 ML VIAL ONE ×4 (11:45→15:52)
[2017-07-05] MEDS ORDERED: Albumin 5% 500 ML ONE (11:45)
[2017-07-05] MEDS ORDERED: Dexamethasone 4 mg/ml Vial ONE (11:49)
[2017-07-05 11:56] LABS: Hypochromia SLIGHT = 6-15 cells (100X) (0-5/hpf); MDiff Complete? YES; Microcytosis SLIGHT = 6-15 cells (100X) (0-5/hpf); Polychromasia MODERATE = 3-4 cells (100X) (0-2/hpf)
[2017-07-05] MEDS ORDERED: cefOXitin 2 GM VIAL ONE (14:10)
[2017-07-05] MEDS ORDERED: Meperidine HCl/PF 25 MG/ML VIAL SLOW IVP PRN (14:38)
[2017-07-05] MEDS ORDERED: Morphine Sulfate 2 MG/ML SYRINGE SLOW IVP PRN (14:38)
[2017-07-05] MEDS ORDERED: HYDROmorphone 2 MG/ML VIAL SLOW IVP PRN (14:38)
[2017-07-05] MEDS ORDERED: Promethazine HCl 25 MG/ML VIAL SLOW IVP PRN (14:38)
[2017-07-05] MEDS ORDERED: HYDROmorphone 10 mg/100 ml CADD IVPB PRN (15:06)
[2017-07-05] MEDS ORDERED: Ondansetron HCl/PF 4 MG/2 ML Vial IVP PRN ×2 (15:06→18:21)
[2017-07-05] MEDS ORDERED: diphenhydrAMINE 50 MG/ML VIAL IM PRN (15:06)
[2017-07-05] MEDS ORDERED: diphenhydrAMINE 50 MG/ML VIAL IVP PRN (15:06)
[2017-07-05] MEDS ORDERED: Naloxone HCl 0.4 mg/ml Vial IV PRN (15:06)
[2017-07-05] MEDS ORDERED: Zolpidem Tartrate 5 MG TAB PO PRN (15:06)
[2017-07-05] MEDS ORDERED: Promethazine HCl 25 MG/ML VIAL IM PRN ×2 (15:06→18:21)
[2017-07-05] MEDS ORDERED: diphenhydrAMINE 25 MG CAP PO PRN (15:06)
[2017-07-05] MEDS ORDERED: Communication Order-Pharmacy FS SCH (15:15)
[2017-07-05] MEDS ORDERED: Bupivacaine HCl 0.5%/Epinephrine 1:200,000/PF 30 ml Vial ONE (16:41)
[2017-07-05] MEDS ORDERED: PROPOFOL 200 MG/20 ML VIAL ONE (17:16)
[2017-07-05] MEDS ORDERED: PHENYLEPHRINE-NS 100 MCG/ML 10 ML SYRINGE ONE (17:16)
[2017-07-05] MEDS ORDERED: Dexamethasone 20 MG/5 ML VIAL ONE ×2 (17:16)
[2017-07-05] MEDS ORDERED: Glycopyrrolate 0.2 MG/ML 5 ML SYRINGE ONE (17:16)
[2017-07-05] MEDS ORDERED: Ondansetron HCl/PF 4 MG/2 ML Vial ONE (17:16)
[2017-07-05] MEDS ORDERED: Lidocaine 1% PF 5 ML VIAL ONE (17:16)
[2017-07-05] MEDS ORDERED: Fentanyl 100 MCG/2 ML VIAL SLOW IVP PRN ×2 (18:21)
[2017-07-05] MEDS ORDERED: hydrALAZINE 20 MG/ML VIAL SLOW IVP PRN (18:21)
[2017-07-05] MEDS ORDERED: Insulin Regular 300 UNITS/3 ML VIAL SC PRN (18:21)
[2017-07-05 21:14] VITALS: BMI 41.7
[2017-07-05] MEDS: Sodium Chloride 0.9% 1,000 ML IV SCH (21:28)
[2017-07-05] MEDS: cefOXitin 2 GM, Syringe 1 ML in Sterile Water 10 ML SLOW IVP SCH (21:29)
[2017-07-05] MEDS: Acetaminophen 1,000 MG in Premix Bag 1 BAG IVPB SCH (21:29)
[2017-07-05] MEDS: Famotidine/PF 20 mg/2ml Vial SLOW IVP SCH (21:30)
[2017-07-05] MEDS: Famotidine 20 MG TAB PO SCH (21:30)
[2017-07-05] MEDS ORDERED: cefOXitin 2 GM in Sodium Chloride 0.9% 100 ML IVPB SCH (22:00)
[2017-07-05] MEDS ORDERED: azaTHIOprine 50 MG TAB PO SCH (22:30)
[2017-07-05] MEDS: Hydrocortisone Sod Succ/PF 100 mg/2 ml Vial IVP SCH (23:02)
[2017-07-06] MEDS: Acetaminophen 1,000 MG in Premix Bag 1 BAG IVPB SCH ×3 (02:01→14:20)
[2017-07-06] MEDS: Sodium Chloride 0.9% 1,000 ML IV SCH ×2 (02:02→12:08)
[2017-07-06] MEDS: cefOXitin 2 GM, Syringe 1 ML in Sterile Water 10 ML SLOW IVP SCH (05:06)
[2017-07-06] MEDS: Hydrocortisone Sod Succ/PF 100 mg/2 ml Vial IVP SCH ×3 (05:06→21:11)
[2017-07-06 07:15] LABS: Anion Gap 14 mmol/L (10-20); BUN (Urea Nitrogen) 30 mg/dL (8.9-20.6); Calc. Creatinine Clearance 61 mL/min (70-130); Calcium 8.4 mg/dL (7.8-10.44); Carbon Dioxide 24 mmol/L (22-29); Chloride 107 mmol/L (98-107); Estimated GFR-MDRD 29; Glucose 127 mg/dL (70-105); Potassium 5.2 mmol/L (3.5-5.1); Sodium 140 mmol/L (136-145)
[2017-07-06 07:57] LABS: #Lymphocytes 0.8 thou/uL (1.20-3.40); #Monocytes 1.1 thou/uL (0.11-0.59); #Neutrophils 11.5 thou/uL (1.40-6.50); %Basophils 0.2 % (0.0-1.0); %Eosinophils 0.1 % (0.0-10.0); %Lymphocytes 5.9 % (21.0-51.0); %Neutrophils 85.8 % (42.0-75.0); Hemoglobin 8.6 g/dL (14.0-18.0); Hypochromia MODERATE=16-30 cells (100X) (0-5/hpf); MDiff Complete? YES; Mean Corpuscular HGB CONC 29.4 g/dL (32.0-36.0); Mean Corpuscular Hemoglobin 23.2 pg (27.0-31.0); Mean Corpuscular Volume 78.8 fl (80.0-94.0); Mean Platelet Volume 9.3 fL (7.4-10.4); PLT Morphology Comment Appears Adequate; Platelet Count 320 thou/uL (130-400); Polychromasia MODERATE = 3-4 cells (100X) (0-2/hpf); RBC Distribution Width 19.1 % (11.5-14.5); Red Blood Cell (RBC) Count 3.72 mill/uL (4.70-6.10); White Blood Cell (WBC) Count 13.4 thou/uL (4.8-10.8)
[2017-07-06] MEDS: azaTHIOprine 50 MG TAB PO SCH (08:55)
[2017-07-06] MEDS: Famotidine/PF 20 mg/2ml Vial SLOW IVP SCH ×2 (08:55→21:11)
[2017-07-06] MEDS: Famotidine 20 MG TAB PO SCH ×2 (09:05→21:10)
--- NOTE | 2017-07-06 09:56 | PRG ---
DATE OF SERVICE: 07/06/2017 SUBJECTIVE. Mr. Taylor's pain is well controlled, he is on P[employer]ENT. He likes the IV Tylenol as well. He has ambulated once this morning. His catheter is out, but he had not urinated yet. No nausea, but not passing any gas either. PHYSICAL EXAMINATION: VITAL SIGNS: His pulse is 95, blood pressure is 143/89, temperature 98.9. He is afebrile overnight. Urine output 350 overnight. ABDOMEN: Soft , appropriately tender. Incision is healing well without evidence of infection. LABORATORY DATA: White blood cell count is 13, hemoglobin 8.6, platelet count is 320. Sodium 140, p otassium 5.2, creatinine is 2.40. Sugar is 127. ASSESSMENT: Postop day #1 right colectomy, creatinine up to 2.4. His baseline is in the upper ones 1.8 or so. PLAN: Continue IV fluids overnight, but advance to full liquids. Recheck his chemistry in the [facility]. He is covered with hydrocortisone for now.
--- NOTE | 2017-07-06 12:31 | OP ---
DATE OF PROCEDURE: 07/05/2017 PREOPERATIVE DIAGNOSIS: Right colon cancer. POSTOPERATIVE DIAGNOSIS: Right colon cancer. PROCEDURE: Laparoscopic converted to open right colectomy with isoperistaltic ileocolonic anastomosi s. SURGEON: Dr. Devin Goldman. ANESTHESIA: General. ESTIMATED BLOOD LOSS: 50 mL COMPLICATIONS: None. TECHNIQUE: The patient was taken to the operating room and placed supine on the table. After genera l anesthetic was obtained, Velez was placed. The abdomen was prepped and draped in a sterile fashion . Left subcostal 11 mm Optiview trocar placed without injury. High-flow pneumoperitoneum was obtain ed. Robot camera port was placed left of the umbilicus. The patient had multiple adhesions in the p rc. The omentum was not able to be raised up. Some of these were taken down sharply. The patien t had transplanted kidney in the right pelvis. This was pushing the small bowel up. There were some adhesions in this area as well. The patient had a significant amount of intra-abdominal fat that ma de visualization of the medial aspect of the right colon very difficult, the decision was made to ope n. A midline incision was made. All ports were removed. The right colon was mobilized along the wh ite line of Toldt. The hepatic flexure was mobilized in the usual fashion using the impact LigaSure. The peritoneum was incised on the medial aspect of the ascending colon. DIAMOND-75 was fired across th e terminal ileum, reload was fired across the proximal transverse colon. The tattooed area where the colon cancer was within the mid ascending colon. The ileocolic vessels were taken low using Gunjan c lamps and silk ties. The rest of the mesentery was taken using the impact LigaSure. The duodenum wa s found and excluded from the dissection. Specimen was opened on the back table to reveal the large ascending colon mass. The small bowel was brought up against the mid transverse colon in isoperistal tic fashion. Silk sutures were used to hold the antimesenteric surfaces on each side. Enterotomy wa s made on the small bowel and a colotomy was made and then a [id number] anastomosis performed with a DIAMOND-75 stapler. The common enterotomy was closed transversely using a running 2-0 Vicryl in two la yers. A crotch stitch was placed using silk. There was no evidence of ischemia or tension to the st aple line. The mesenteric defect was closed using silk suture. There was no bleeding in the abdomen , in the retroperitoneum, or the right upper quadrant. The abdomen was irrigated using sterile solut ion. All instrument counts, needle counts, and lap counts were correct. PDS was used to close the f ascial defect from the top and the bottom and tied in the middle. Subcutaneous tissues were irrigate d copiously using sterile solution. All incisions are closed using 3-0 Vicryl, 4-0 Monocryl, and Luis mabond. The patient was en route to recovery in stable condition. All instrument counts, needle cou nts, and lap counts were correct.
[2017-07-06] MEDS: Enoxaparin Sodium 40 MG/0.4 ML SYRINGE SC SCH (21:11)
[2017-07-07] MEDS: Sodium Chloride 0.9% 1,000 ML IV SCH (00:40)
[2017-07-07 05:25] LABS: Anion Gap 10 mmol/L (10-20); BUN (Urea Nitrogen) 22 mg/dL (8.9-20.6); Calc. Creatinine Clearance 93 mL/min (70-130); Calcium 8.4 mg/dL (7.8-10.44); Carbon Dioxide 28 mmol/L (22-29); Chloride 108 mmol/L (98-107); Estimated GFR-MDRD 47; Glucose 102 mg/dL (70-105); Potassium 5.2 mmol/L (3.5-5.1); Sodium 141 mmol/L (136-145)
[2017-07-07] MEDS: Hydrocortisone Sod Succ/PF 100 mg/2 ml Vial IVP SCH ×3 (06:12→21:49)
[2017-07-07] MEDS: Famotidine 20 MG TAB PO SCH ×2 (09:42→21:43)
[2017-07-07] MEDS: azaTHIOprine 50 MG TAB PO SCH (09:43)
[2017-07-07] MEDS: Famotidine/PF 20 mg/2ml Vial SLOW IVP SCH ×2 (09:43→21:48)
[2017-07-07] MEDS ORDERED: HYDROcodone/Acetaminophen 10/325 mg Tablet PO PRN (13:47)
[2017-07-07] MEDS ORDERED: Fentanyl 100 MCG/2 ML VIAL SLOW IVP PRN ×2 (13:47)
--- NOTE | 2017-07-07 14:08 | PRG ---
DATE OF SERVICE: 07/07/2017 Mr. Taylor is doing well. He is tolerating the full liquids. Denies nausea, no flatus or bowel movem ent yet. He is afebrile. His vital signs are stable. Adequate urine output. His abdomen is soft, it is mini curt distended. He does have some bowel sounds. His wound is healing well. Surgical pathology is pending. LABORATORY: Sodium 141, potassium 5.2, creatinine 1.57, BUN is 22. ASSESSMENT: Postop day #2 right colectomy. PLAN: Full liquids, add p.o. pain medicine. Continue IV steroids for now, likely transition back to his normal prednisone tomorrow.
[2017-07-07] MEDS: HYDROcodone/Acetaminophen 10/325 mg Tablet PO PRN (21:47)
[2017-07-07] MEDS: Enoxaparin Sodium 40 MG/0.4 ML SYRINGE SC SCH (21:49)
[2017-07-08 05:49] LABS: #Eosinphils 0.1 thou/uL (0.0-0.7); #Lymphocytes 1.4 thou/uL (1.20-3.40); #Neutrophils 6.3 thou/uL (1.40-6.50); %Basophils 0.4 % (0.0-1.0); %Eosinophils 0.8 % (0.0-10.0); %Lymphocytes 16.2 % (21.0-51.0); %Monocytes 11.4 % (0.0-10.0); %Neutrophils 71.2 % (42.0-75.0); Hemoglobin 8.1 g/dL (14.0-18.0); Mean Corpuscular HGB CONC 29.5 g/dL (32.0-36.0); Mean Corpuscular Hemoglobin 23.2 pg (27.0-31.0); Mean Corpuscular Volume 78.8 fl (80.0-94.0); Mean Platelet Volume 9.5 fL (7.4-10.4); Platelet Count 286 thou/uL (130-400); RBC Distribution Width 18.9 % (11.5-14.5); White Blood Cell (WBC) Count 8.9 thou/uL (4.8-10.8)
[2017-07-08 05:57] LABS: Anion Gap 11 mmol/L (10-20); BUN (Urea Nitrogen) 16 mg/dL (8.9-20.6); Calc. Creatinine Clearance 105 mL/min (70-130); Calcium 9.1 mg/dL (7.8-10.44); Carbon Dioxide 30 mmol/L (22-29); Chloride 108 mmol/L (98-107); Estimated GFR-MDRD 54; Glucose 108 mg/dL (70-105); Sodium 144 mmol/L (136-145)
[2017-07-08] MEDS: Hydrocortisone Sod Succ/PF 100 mg/2 ml Vial IVP SCH (06:12)
[2017-07-08] MEDS: HYDROcodone/Acetaminophen 10/325 mg Tablet PO PRN ×2 (06:55→12:04)
[2017-07-08] MEDS: azaTHIOprine 50 MG TAB PO SCH (08:58)
[2017-07-08] MEDS: Famotidine 20 MG TAB PO SCH (08:59)
--- NOTE | 2017-07-08 10:54 | DIS ---
DATE OF ADMISSION: 07/05/2017 DATE OF DISCHARGE: 07/08/2017 ADMIT DIAGNOSIS: Right colon cancer. DISCHARGE DIAGNOSIS: Right colon cancer. PROCEDURE: Right colectomy by Dr. Goldman without complication. CONDITION AT DISCHARGE: Improved. STAFF: Dr. Goldman. HOSPITAL COURSE: The patient was admitted postop on a clear liquid diet. On postoperative day #1, a dvanced to full liquids. Postop day #2, he was doing well, but passing no flatus yet. On postop day #3, he is doing well. He has had a bowel movement, nonbloody. He is tolerating full liquid diet wi thout difficulty. He is to be discharged to home on home meds as the same before surgery. I gave hi m a prescription for [place] and Zofran. He will follow up with me in 2 weeks. His pathology shows T3 N1 right colon cancer margins clear.
[2017-07-08] MEDS: Famotidine/PF 20 mg/2ml Vial SLOW IVP SCH (11:11)
[2017-07-08 11:57] VITALS: BP 126/84; TEMP 98.9
== END 2017-07-08 12:52 | disposition home or self-care (01) | DRG 329 ==
LOC: EEVIPCON 07-05 10:15 → SURG A 07-05 10:16
PROVIDERS: ADMIT Surgery; ATTEND Surgery
PROC: 0DTF0ZZ Resection of Right Large Intestine, Open Approach (ICD-10-PCS; principal; 2017-07-05)
PROC: 3E0T3BZ Introduction of Anesthetic Agent into Peripheral Nerves and Plexi, Percutaneous Approach (ICD-10-PCS; 2017-07-05)
DX: C18.2 Malignant neoplasm of ascending colon (principal); N18.6 End stage renal disease; I13.11 Hypertensive heart and chronic kidney disease without heart failure, with stage 5 chronic kidney disease, or end stage renal disease; Z94.0 Kidney transplant status; Z68.41 Body mass index [BMI] 40.0-44.9, adult; Z79.52 Long term (current) use of systemic steroids; Z53.31 Laparoscopic surgical procedure converted to open procedure; E66.9 Obesity, unspecified; M19.90 Unspecified osteoarthritis, unspecified site
CPT/HCPCS: 36415; 36416; 80048; 85025; 86850; 86900; 86901; 88309; A4216; J0131; J0670; J0694; J1100; J1650; J1720; J2001; J2250; J2405; J2704; J3010; J7500; J7620; P9045; S0028

== ENCOUNTER 2018-03-31 19:30 | Outpatient (CLI) | payer BC | END 2018-03-31 19:31 | disposition home or self-care (01) | LOC: SLEEPLAB 19:30 | PROVIDERS: ATTEND Nurse Practitioner Family | DX: G47.33 Obstructive sleep apnea (adult) (pediatric) (principal); G47.00 Insomnia, unspecified; R53.83 Other fatigue; E66.9 Obesity, unspecified; K21.9 Gastro-esophageal reflux disease without esophagitis; R35.1 Nocturia; Z68.42 Body mass index [BMI] 45.0-49.9, adult | CPT/HCPCS: 95811 ==

== ENCOUNTER 2018-05-24 10:19 | Day surgery (SDC) | payer BC ==
[2018-05-23 14:14] VITALS: BMI 45.1
[2018-05-24] MEDS ORDERED: CEFAZOLIN 2 GM/50 ML BAG ONE (10:50)
[2018-05-24] MEDS ORDERED: Bupivacaine/Epinephrine 0.25% 30 ML VIAL ONE (11:25)
[2018-05-24] MEDS ORDERED: Lidocaine 2% Jelly 5 ML TUBE ONE (11:25)
[2018-05-24] MEDS ORDERED: Fentanyl 100 MCG/2 ML VIAL ONE (11:38)
[2018-05-24] MEDS ORDERED: Midazolam HCl 2 mg/2 ml Vial ONE (11:38)
[2018-05-24] MEDS ORDERED: PROPOFOL 200 MG/20 ML VIAL ONE (17:19)
[2018-05-24] MEDS ORDERED: Lidocaine 1% PF 5 ML VIAL ONE (17:19)
--- NOTE | 2018-05-26 15:01 | OP ---
DATE OF PROCEDURE: 05/24/2018 PREOPERATIVE DIAGNOSIS: Anal condyloma. POSTOPERATIVE DIAGNOSIS: Anal condyloma. PROCEDURE PERFORMED: Fulguration of anal condyloma. ANESTHESIA: General. ESTIMATED BLOOD LOSS: Minimal. COMPLICATIONS: None. SPECIMEN: None. FINDINGS: There was a larger condyloma in the lateral gluteal cleft. There were a few small ends up near the anus. DESCRIPTION OF PROCEDURE: The patient was taken to the operating room, laid in the supine position on the operating room table. After general anesthetic was obtained, he was placed in lithotomy position. His perineal and perianal areas were prepped and draped in a sterile fashion. The larger condyloma on the lateral buttock was cauterized and removed, leaving a raw open wound. There were a few small other condyloma removed up near the anus using cautery. The wounds were left open. The patient was then returned to Recovery in stable condition. All instrument counts, needle counts, and lap counts were correct. Job ID: [id number]
== END 2018-05-24 14:45 | disposition home or self-care (01) ==
LOC: SDC 10:19
PROVIDERS: ATTEND Surgery
PROC: 0D5QXZZ Destruction of Anus, External Approach (ICD-10-PCS; principal; 2018-05-24)
DX: A63.0 Anogenital (venereal) warts (principal); G47.33 Obstructive sleep apnea (adult) (pediatric); E66.01 Morbid (severe) obesity due to excess calories; Z68.42 Body mass index [BMI] 45.0-49.9, adult; Z85.038 Personal history of other malignant neoplasm of large intestine; Z79.52 Long term (current) use of systemic steroids; Z79.899 Other long term (current) drug therapy; Z90.49 Acquired absence of other specified parts of digestive tract; Z94.0 Kidney transplant status
CPT/HCPCS: J2001; J2250; J2704; J3010

== ENCOUNTER 2018-09-21 08:48 | Day surgery (SDC) | payer BC ==
[2018-09-20 11:50] VITALS: BMI 43.5
--- NOTE | 2018-09-21 11:41 | OP ---
DATE OF PROCEDURE: 09/21/2018 PREPROCEDURE DIAGNOSES: 1. History of stage IIB colorectal cancer in the right colon in 05/2017. He did not have adjuvant chemo in light of renal transplant. 2. Recent stress test normal. 3. Recent hemorrhoidectomy with Dr. Goldman. 4. Recent CEA 3.2 in December 2016. Hemoglobin was 10.4 at that time. 5. Sleep apnea. POSTPROCEDURE DIAGNOSES: 1. Normal anastomosis right colon. 2. Normal post hemorrhoidectomy rectum. 3. No polyps. RECOMMENDATIONS: 1. Check CEA. 2. Follow up in the office in 6 months. 3. Repeat colonoscopy in 3 years. ANESTHESIA: TIVA. PROCEDURE IN DETAIL: The patient was informed of the risks, benefits, and possible complications of endoscopy including perforation, reaction to medication, and aspiration. Informed consent was obtained. The patient was brought to the endoscopy suite, where he was sedated in gradual fashion. Once he was comfortable, a rectal examination was performed. This was normal. The endoscope was advanced through the anal canal through the colon to the cecum with the anastomosis in the right colon, it was an end-to-side anastomosis. There was a little bit of colon distal to this, which appeared normal. The prep was very good. The anastomosis appeared normal. There was no polyps noted throughout the colon. Retroflexed views in the rectum were normal. The scope was removed. The patient tolerated the procedure well. There were no complications. Job ID: [id number]
== END 2018-09-21 11:52 | disposition home or self-care (01) ==
LOC: SDC 08:48
PROVIDERS: ATTEND Internal Medicine Gastroenterology
PROC: 0DJD8ZZ Inspection of Lower Intestinal Tract, Via Natural or Artificial Opening Endoscopic (ICD-10-PCS; principal; 2018-09-21)
DX: Z08 Encounter for follow-up examination after completed treatment for malignant neoplasm (principal); G47.30 Sleep apnea, unspecified; I12.9 Hypertensive chronic kidney disease with stage 1 through stage 4 chronic kidney disease, or unspecified chronic kidney disease; N18.9 Chronic kidney disease, unspecified; E66.3 Overweight; Z68.42 Body mass index [BMI] 45.0-49.9, adult; Z90.49 Acquired absence of other specified parts of digestive tract; Z86.010 Personal history of colon polyps; Z79.52 Long term (current) use of systemic steroids; Z79.899 Other long term (current) drug therapy; Z94.0 Kidney transplant status; Z98.0 Intestinal bypass and anastomosis status; Z98.890 Other specified postprocedural states
CPT/HCPCS: 82378

== ENCOUNTER 2020-11-07 13:01 | Inpatient (IN) | payer BC, SELFPAY ==
[~2020-11-07 13:01] MED LIST: Heparin 1,000 UNITS/ML VIAL ONE
[2020-11-07] MEDS ORDERED: Dexamethasone 10 MG/ML VIAL ONE (13:22)
[2020-11-07] MEDS ORDERED: Cefepime 2 GM VIAL ONE (13:30)
[2020-11-07 13:40] LABS: Actual Bicarbonate (HCO3a) 12.9 mEq/L (22-28); Analyzer IN Cardio ER; Base Excess (BEa) -9.9 mEq/L (-2.0 to +3.0); Calcium, Ionized (arterial) 1.11 mmol/L (1.12-1.30); Carboxyhemoglobin (COHb) 0.4 gm% (0.0-3.0); Hemoglobin (Hb) 13.1 g/dL (14.0-18.0); Potassium - ABG Lab 4.58 mmol/L (3.70-5.30); pH, Arterial 7.39 (7.35-7.45)
[2020-11-07 13:43] LABS: CO2 Tension 21.6 mmHg (35.0-45.0)
[2020-11-07 13:44] LABS: Puncture Site RBA
[2020-11-07 13:48] LABS: #Lymphocytes 0.5 thou/uL (1.20-3.40); #Monocytes 0.2 thou/uL (0.11-0.59); #Neutrophils 6.1 thou/uL (1.40-6.50); %Eosinophils 0.2 % (0.0-10.0); %Lymphocytes 6.8 % (21.0-51.0); %Monocytes 3.1 % (0.0-10.0); Hemoglobin 12.8 g/dL (14.0-18.0); Mean Corpuscular Hemoglobin 31.9 pg (27.0-31.0); Mean Corpuscular Volume 96.6 fL (78.0-98.0); Platelet Count 224 thou/uL (130-400); RBC Distribution Width 13.6 % (11.5-14.5); Red Blood Cell (RBC) Count 4.03 mill/uL (4.70-6.10); White Blood Cell (WBC) Count 6.8 thou/uL (4.8-10.8)
[2020-11-07] MEDS ORDERED: Vancomycin 1.5 GRAM/300 ML BAG 1.5 GM in Premix Bag 1 BAG IVPB SCH (14:00)
[2020-11-07] MEDS ORDERED: Acetaminophen 500 MG TAB ONE (14:24)
[2020-11-07 14:29] LABS: ALT (SGPT) 37 U/L (8-55); AST (SGOT) 51 U/L (5-34); Alkaline Phosphatase 57 U/L (40-110); Anion Gap 17 mmol/L (10-20); BUN (Urea Nitrogen) 42 mg/dL (8.4-25.7); Bilirubin, Total 0.7 mg/dL (0.2-1.2); Calc. Creatinine Clearance 0 mL/min (70-130); Calcium 7.7 mg/dL (7.8-10.44); Carbon Dioxide 11 mmol/L (22-29); Chloride 113 mmol/L (98-107); Globulin 3.2 g/dL (2.4-3.5); Glucose 88 mg/dL (70-105); Potassium 4.9 mmol/L (3.5-5.1); Protein, Total 6.2 g/dL (6.0-8.3); Sodium 136 mmol/L (136-145)
[2020-11-07 14:42] LABS: SARS-CoV-2 NAA Rapid Test DETECTED (NotDetected)
[2020-11-07 14:43] LABS: CKMB 0.4 ng/mL (0-6.6)
[2020-11-07] MEDS ORDERED: Ondansetron PF 4 MG/2 ML Vial IVP PRN (15:17)
[2020-11-07] MEDS ORDERED: Acetaminophen 325 MG/10.15 ML UDCUP PO PRN (15:17)
[2020-11-07] MEDS ORDERED: Electrolyte Replacement Protocol 1 EACH IVPB ONE (15:17)
[2020-11-07] MEDS ORDERED: Mag-Al 1200 mg/1200 mg/30 ML UDCUP PO PRN (15:17)
[2020-11-07] MEDS ORDERED: Dextrose 50% Abboject 50 ML SYRINGE SLOW IVP PRN (15:19)
[2020-11-07] MEDS ORDERED: Dextrose 5% in Water 1,000 ML IV PRN (15:19)
[2020-11-07 17:42] LABS: Base Excess -10.6 mEq/L (-2.0 to +3.0); Calcium, Ionized (venous) 1.03 mmol/L (1.16-1.32); Chloride (VBG) 112 mmol/L (98-106); Hemoglobin (Hb) 13.3 g/dL (13.1-17.2); Potassium (VBG) 5.05 mmol/L (3.70-5.30); Sodium 138.3 mmol/L (133-146); pH (venous) 7.33 (7.32-7.43)
[2020-11-07 17:43] LABS: Actual Bicarbonate (HCO3v) 14 mEq/L (22-28)
[2020-11-07] MEDS ORDERED: Pharmacy to Dose REMDESIVIR IVPB PRN (18:24)
[2020-11-07 18:30] LABS: Troponin I 0.063 ng/mL (< 0.028)
[2020-11-07] MEDS: SODIUM CHLORIDE 0.9% IVPB SCH (19:03)
[2020-11-07] MEDS: Sodium Bicarbonate 140 MEQ in Dextrose 5% in Water 1,000 ML IV SCH (19:03)
[2020-11-07] MEDS: METHYLPREDNISOLONE SOD SUCC IVPB SCH (19:03)
[2020-11-07] MEDS: Ivermectin 3 MG TAB PO SCH (19:11)
[2020-11-07 20:40] LABS: Troponin I 0.046 ng/mL (< 0.028)
[2020-11-07] MEDS: Enoxaparin Sodium 30 MG/0.3 ML SYRINGE SC SCH (20:54)
[2020-11-08] MEDS: Cefepime 2 GM in Sodium Chloride 0.9% 100 ML IVPB SCH ×2 (02:53→13:26)
[2020-11-08 04:11] LABS: ALT (SGPT) 35 U/L (8-55); AST (SGOT) 52 U/L (5-34); Albumin 2.8 g/dL (3.5-5.0); Alkaline Phosphatase 55 U/L (40-110); Anion Gap 15 mmol/L (10-20); BUN (Urea Nitrogen) 45 mg/dL (8.4-25.7); Bilirubin, Total 0.4 mg/dL (0.2-1.2); Calc. Creatinine Clearance 61 mL/min (70-130); Calcium 7.8 mg/dL (7.8-10.44); Carbon Dioxide 14 mmol/L (22-29); Chloride 114 mmol/L (98-107); Glucose 128 mg/dL (70-105); Potassium 4.7 mmol/L (3.5-5.1); Protein, Total 5.8 g/dL (6.0-8.3); Sodium 138 mmol/L (136-145)
[2020-11-08 04:24] LABS: Hemoglobin 12.7 g/dL (14.0-18.0); Mean Corpuscular HGB CONC 33.3 g/dL (32.0-36.0); Mean Corpuscular Hemoglobin 31.9 pg (27.0-31.0); Mean Corpuscular Volume 95.9 fL (78.0-98.0); Mean Platelet Volume 9.1 fL (7.4-10.4); Platelet Count 196 thou/uL (130-400); RBC Distribution Width 13.7 % (11.5-14.5); Red Blood Cell (RBC) Count 3.99 mill/uL (4.70-6.10)
[2020-11-08 04:25] LABS: Band 4 % (5-11); Hypochromia SLIGHT = 6-15 cells (100X) (0-5/hpf); Lymphocytes 5 % (21-51); MDiff Complete? YES; Neutrophil 91 % (42-75); Platelet Morphology Comment Appears Adequate
[2020-11-08] MEDS: Enoxaparin Sodium 30 MG/0.3 ML SYRINGE SC SCH ×2 (08:12→21:04)
[2020-11-08] MEDS: Ascorbic Acid 500 mg Chewable Tablet PO SCH (08:12)
[2020-11-08] MEDS: Zinc Sulfate 220 MG CAP PO SCH (08:12)
[2020-11-08] MEDS: Cholecalciferol (Vitamin D3) 400 UNITS TAB PO SCH (08:13)
[2020-11-08] MEDS: Sodium Bicarbonate 140 MEQ in Dextrose 5% in Water 1,000 ML IV SCH (09:20)
[2020-11-08] MEDS ORDERED: guaiFENesin/Codeine 200 mg/20 mg 10 ml Cup PO PRN (10:41)
[2020-11-08] MEDS: VANCOMYCIN 1.75 GM/350 ML BAG 1.75 GM in Premix Bag 1 BAG IVPB SCH (15:38)
[2020-11-08] MEDS: Ivermectin 3 MG TAB PO SCH (17:32)
[2020-11-08] MEDS: SODIUM CHLORIDE 0.9% IVPB SCH (17:56)
[2020-11-08] MEDS: METHYLPREDNISOLONE SOD SUCC IVPB SCH (17:56)
[2020-11-08] MEDS ORDERED: Acetaminophen 325 MG TAB PO PRN (21:44)
[2020-11-09 00:45] LABS: Anion Gap 14 mmol/L (10-20); BUN (Urea Nitrogen) 45 mg/dL (8.4-25.7); Calc. Creatinine Clearance 66 mL/min (70-130); Calcium 7.8 mg/dL (7.8-10.44); Carbon Dioxide 19 mmol/L (22-29); Chloride 109 mmol/L (98-107); Glucose 181 mg/dL (70-105); Magnesium 1.9 mg/dL (1.6-2.6); Potassium 4.4 mmol/L (3.5-5.1); Sodium 138 mmol/L (136-145)
[2020-11-09] MEDS: Diltiazem 125 MG in Sodium Chloride 0.9% 100 ML IVPB SCH ×2 (00:55→11:29)
[2020-11-09] MEDS ORDERED: Enoxaparin Sodium 100 MG/ML SYRINGE SC SCH (01:45)
[2020-11-09] MEDS ORDERED: Magnesium Oxide 400 MG TAB PO SCH (02:45)
[2020-11-09] MEDS: Sodium Bicarbonate 140 MEQ in Dextrose 5% in Water 1,000 ML IV SCH ×2 (03:20→15:49)
[2020-11-09] MEDS: Cefepime 2 GM in Sodium Chloride 0.9% 100 ML IVPB SCH ×2 (03:20→15:18)
[2020-11-09] MEDS: azaTHIOprine 50 MG TAB PO SCH (07:37)
[2020-11-09] MEDS: Cholecalciferol (Vitamin D3) 400 UNITS TAB PO SCH (07:37)
[2020-11-09] MEDS: Enoxaparin Sodium 120 MG/0.8 ML SYRINGE SC SCH ×2 (07:38→21:02)
[2020-11-09] MEDS: Zinc Sulfate 220 MG CAP PO SCH (07:38)
[2020-11-09] MEDS: Ascorbic Acid 500 mg Chewable Tablet PO SCH (07:38)
[2020-11-09 07:53] LABS: ALT (SGPT) 33 U/L (8-55); AST (SGOT) 41 U/L (5-34); Albumin 2.9 g/dL (3.5-5.0); Alkaline Phosphatase 57 U/L (40-110); Anion Gap 18 mmol/L (10-20); BUN (Urea Nitrogen) 46 mg/dL (8.4-25.7); Bilirubin, Total 0.4 mg/dL (0.2-1.2); CRP (Inflammatory) 9.22 mg/dL (= or < 0.5); Calc. Creatinine Clearance 66 mL/min (70-130); Calcium 7.7 mg/dL (7.8-10.44); Carbon Dioxide 15 mmol/L (22-29); Chloride 110 mmol/L (98-107); Globulin 3.1 g/dL (2.4-3.5); Glucose 165 mg/dL (70-105); Potassium 4.6 mmol/L (3.5-5.1); Sodium 138 mmol/L (136-145)
[2020-11-09 08:25] LABS: Band 6 % (5-11); Hemoglobin 12.8 g/dL (14.0-18.0); Lymphocytes 2 % (21-51); MDiff Complete? YES; Mean Corpuscular HGB CONC 33.9 g/dL (32.0-36.0); Mean Corpuscular Hemoglobin 32.6 pg (27.0-31.0); Mean Platelet Volume 9.6 fL (7.4-10.4); Monocytes 2 % (0-10); Neutrophil 90 % (42-75); Platelet Count 236 thou/uL (130-400); Platelet Morphology Comment Appears Adequate; RBC Distribution Width 13.8 % (11.5-14.5); RBC Morphology Normal; Red Blood Cell (RBC) Count 3.93 mill/uL (4.70-6.10); White Blood Cell (WBC) Count 10.4 thou/uL (4.8-10.8)
[2020-11-09 15:31] LABS: Vancomycin, Trough 15.4 ug/mL
[2020-11-09] MEDS: VANCOMYCIN 1.75 GM/350 ML BAG 1.75 GM in Premix Bag 1 BAG IVPB SCH (16:51)
[2020-11-09] MEDS: Ivermectin 3 MG TAB PO SCH (16:51)
[2020-11-09] MEDS: METHYLPREDNISOLONE SOD SUCC IVPB SCH (21:02)
[2020-11-09] MEDS: Melatonin 3 MG TAB PO SCH (21:02)
[2020-11-09] MEDS: Cholecalciferol 1,000 UNITS (25 MCG) TAB PO SCH (21:02)
[2020-11-09] MEDS: SODIUM CHLORIDE 0.9% IVPB SCH (21:02)
[2020-11-10] MEDS: Cefepime 2 GM in Sodium Chloride 0.9% 100 ML IVPB SCH ×2 (01:36→13:41)
[2020-11-10 04:05] LABS: ALT (SGPT) 31 U/L (8-55); AST (SGOT) 39 U/L (5-34); Albumin 2.6 g/dL (3.5-5.0); Alkaline Phosphatase 54 U/L (40-110); Anion Gap 17 mmol/L (10-20); BUN (Urea Nitrogen) 55 mg/dL (8.4-25.7); Bilirubin, Total 0.4 mg/dL (0.2-1.2); CK (CPK) 271 U/L (30-200); CRP (Inflammatory) 7.79 mg/dL (= or < 0.5); Calc. Creatinine Clearance 59 mL/min (70-130); Calcium 7.4 mg/dL (7.8-10.44); Carbon Dioxide 18 mmol/L (22-29); Chloride 107 mmol/L (98-107); Globulin 2.7 g/dL (2.4-3.5); Glucose 165 mg/dL (70-105); Magnesium 2.1 mg/dL (1.6-2.6); Potassium 4.4 mmol/L (3.5-5.1); Protein, Total 5.3 g/dL (6.0-8.3); Sodium 138 mmol/L (136-145)
[2020-11-10 04:06] LABS: ALT (SGPT) 31 U/L (8-55); AST (SGOT) 39 U/L (5-34); Albumin 2.6 g/dL (3.5-5.0); Alkaline Phosphatase 53 U/L (40-110); Bilirubin, Direct 0.2 mg/dL (0.1-0.3); Bilirubin, Total 0.4 mg/dL (0.2-1.2); Protein, Total 5.3 g/dL (6.0-8.3)
[2020-11-10 04:08] LABS: CKMB 0.6 ng/mL (0-6.6)
[2020-11-10 04:18] LABS: Band 1 % (5-11); Hemoglobin 11.4 g/dL (14.0-18.0); Hypochromia SLIGHT = 6-15 cells (100X) (0-5/hpf); Lymphocytes 4 % (21-51); MDiff Complete? YES; Mean Corpuscular HGB CONC 32.2 g/dL (32.0-36.0); Mean Corpuscular Hemoglobin 30.9 pg (27.0-31.0); Mean Platelet Volume 9.8 fL (7.4-10.4); Monocytes 1 % (0-10); Neutrophil 94 % (42-75); Platelet Count 224 thou/uL (130-400); Platelet Morphology Comment Appears Adequate; RBC Distribution Width 13.7 % (11.5-14.5); Red Blood Cell (RBC) Count 3.68 mill/uL (4.70-6.10); White Blood Cell (WBC) Count 8.3 thou/uL (4.8-10.8)
[2020-11-10] MEDS: Sodium Bicarbonate 140 MEQ in Dextrose 5% in Water 1,000 ML IV SCH ×2 (06:53→14:09)
[2020-11-10] MEDS ORDERED: REMDESIVIR 200 MG in Sodium Chloride 0.9% 250 ML 210 ML IV SCH (09:00)
[2020-11-10] MEDS ORDERED: Diltiazem 125 MG in Sodium Chloride 0.9% 100 ML IVPB SCH (09:01)
[2020-11-10] MEDS: azaTHIOprine 50 MG TAB PO SCH (09:15)
[2020-11-10] MEDS: Zinc Sulfate 220 MG CAP PO SCH (09:15)
[2020-11-10] MEDS: Ascorbic Acid 500 mg Chewable Tablet PO SCH (09:15)
[2020-11-10] MEDS: Enoxaparin Sodium 120 MG/0.8 ML SYRINGE SC SCH ×2 (09:15→21:27)
[2020-11-10] MEDS: Cholecalciferol 1,000 UNITS (25 MCG) TAB PO SCH ×2 (09:15→21:34)
[2020-11-10] MEDS ORDERED: Ventilator Sedation Protocol 1 EACH FS ONE (14:44)
[2020-11-10] MEDS: VANCOMYCIN 1.75 GM/350 ML BAG 1.75 GM in Premix Bag 1 BAG IVPB SCH (15:27)
[2020-11-10] MEDS: Ivermectin 3 MG TAB PO SCH (15:30)
[2020-11-10] MEDS ORDERED: Fentanyl BOLUS 250 ML IVPB PRN (16:30)
[2020-11-10] MEDS ORDERED: DISCONTINUE PREVIOUS NARCOTIC PAIN MEDICATIONS AND BENZODIAZEPINES FS SCH (16:30)
[2020-11-10] MEDS ORDERED: Vecuronium Bromide 50 MG in Sodium Chloride 0.9% 250 ML 250 ML IV SCH (16:30)
[2020-11-10] MEDS ORDERED: Morphine 2 MG/ML VIAL SLOW IVP PRN (16:30)
[2020-11-10] MEDS ORDERED: Propofol BOLUS 1,000 MG/100 ML VIAL IV PRN (16:30)
[2020-11-10] MEDS: HumaLOG 300 UNITS/3 ML VIAL SC PRN (18:21)
[2020-11-10 21:13] LABS: Actual Bicarbonate (HCO3a) 21.7 mEq/L (22-28); Base Excess (BEa) -1.4 mEq/L (-2.0 to +3.0); CO2 Tension 31.7 mmHg (35.0-45.0); Calcium, Ionized (arterial) 1.01 mmol/L (1.12-1.30); Carboxyhemoglobin (COHb) 0.4 gm% (0.0-3.0); Hemoglobin (Hb) 11.9 g/dL (14.0-18.0); Potassium - ABG Lab 3.94 mmol/L (3.70-5.30); pH, Arterial 7.45 (7.35-7.45)
[2020-11-10 21:15] LABS: ALV-art Gradient 516.925 mmHg (0-20); O2 Tension (PaO2), arterial 49.5 mmHg (80.0-100.0)
[2020-11-10] MEDS: Melatonin 3 MG TAB PO SCH (21:27)
[2020-11-11] MEDS: Cefepime 2 GM in Sodium Chloride 0.9% 100 ML IVPB SCH (01:59)
[2020-11-11 04:23] LABS: Hemoglobin 11.7 g/dL (14.0-18.0); Mean Corpuscular HGB CONC 34.2 g/dL (32.0-36.0); Mean Corpuscular Hemoglobin 32.8 pg (27.0-31.0); Mean Corpuscular Volume 95.9 fL (78.0-98.0); Mean Platelet Volume 9.6 fL (7.4-10.4); Platelet Count 221 thou/uL (130-400); RBC Distribution Width 13.6 % (11.5-14.5); Red Blood Cell (RBC) Count 3.56 mill/uL (4.70-6.10); White Blood Cell (WBC) Count 9.5 thou/uL (4.8-10.8)
[2020-11-11 04:32] LABS: ALT (SGPT) 38 U/L (8-55); AST (SGOT) 41 U/L (5-34); Albumin 2.9 g/dL (3.5-5.0); Alkaline Phosphatase 69 U/L (40-110); Anion Gap 16 mmol/L (10-20); BUN (Urea Nitrogen) 56 mg/dL (8.4-25.7); Bilirubin, Total 0.5 mg/dL (0.2-1.2); Calc. Creatinine Clearance 64 mL/min (70-130); Calcium 7.3 mg/dL (7.8-10.44); Carbon Dioxide 23 mmol/L (22-29); Chloride 104 mmol/L (98-107); Glucose 196 mg/dL (70-105); Magnesium 2.2 mg/dL (1.6-2.6); Potassium 4.1 mmol/L (3.5-5.1); Protein, Total 5.9 g/dL (6.0-8.3); Sodium 139 mmol/L (136-145)
[2020-11-11 04:43] LABS: ALT (SGPT) 36 U/L (8-55); AST (SGOT) 41 U/L (5-34); Albumin 2.8 g/dL (3.5-5.0); Alkaline Phosphatase 72 U/L (40-110); Bilirubin, Direct 0.2 mg/dL (0.1-0.3); Bilirubin, Total 0.4 mg/dL (0.2-1.2); Protein, Total 5.7 g/dL (6.0-8.3)
[2020-11-11 04:49] LABS: MDiff Complete? YES; Monocytes 2 % (0-10); Neutrophil 98 % (42-75); Platelet Morphology Comment Appears Adequate
[2020-11-11] MEDS ORDERED: Propofol 1,000 MG/100 ML VIAL IV ONE (07:50)
[2020-11-11] MEDS: Enoxaparin Sodium 120 MG/0.8 ML SYRINGE SC SCH (07:54)
[2020-11-11] MEDS: azaTHIOprine 50 MG TAB PO SCH (07:55)
[2020-11-11] MEDS: Cholecalciferol 1,000 UNITS (25 MCG) TAB PO SCH ×2 (07:55→21:29)
[2020-11-11] MEDS: Zinc Sulfate 220 MG CAP PO SCH (07:56)
[2020-11-11] MEDS: Ascorbic Acid 500 mg Chewable Tablet PO SCH (07:56)
[2020-11-11] MEDS ORDERED: Ventilator Sedation Protocol 1 EACH FS SCH (08:00)
[2020-11-11] MEDS: Lorazepam 2 MG/ML VIAL SLOW IVP PRN ×5 (08:45→17:42)
[2020-11-11] MEDS: Vecuronium 10 MG VIAL IVP PRN ×3 (09:00→17:42)
[2020-11-11] MEDS ORDERED: REMDESIVIR 100 MG in Sodium Chloride 0.9% 250 ML 230 ML IV SCH (09:00)
[2020-11-11] MEDS ORDERED: Morphine 4 MG/ML VIAL ONE (09:07)
[2020-11-11 09:29] LABS: Actual Bicarbonate (HCO3a) 26.9 mEq/L (22-28); CO2 Tension 43.2 mmHg (35.0-45.0); Calcium, Ionized (arterial) 0.98 mmol/L (1.12-1.30); Carboxyhemoglobin (COHb) 0.4 gm% (0.0-3.0); Hemoglobin (Hb) 12.7 g/dL (14.0-18.0); Potassium - ABG Lab 3.69 mmol/L (3.70-5.30); pH, Arterial 7.41 (7.35-7.45)
[2020-11-11 10:38] LABS: O2 Tension (PaO2), arterial 59.4 mmHg (80.0-100.0); Puncture Site RRA
[2020-11-11] MEDS: Sodium Bicarbonate 50 MEQ in Sodium Chloride 0.45% 1,000 ML IV SCH (10:38)
[2020-11-11] MEDS: Propofol 1,000 MG/100 ML VIAL IV PRN ×4 (10:40→21:41)
[2020-11-11] MEDS ORDERED: Sodium Chloride 0.9% (PF) 10 ML VIAL FS PRN (11:15)
[2020-11-11] MEDS: HumaLOG 300 UNITS/3 ML VIAL SC PRN ×2 (12:01→16:27)
[2020-11-11] MEDS: Cefepime 1 GM in Sodium Chloride 0.9% 100 ML IVPB SCH (13:40)
[2020-11-11] MEDS: Metoprolol Tartrate 5 MG/5 ML VIAL IVP SCH ×2 (13:42→17:42)
[2020-11-11] MEDS: VANCOMYCIN 1.75 GM/350 ML BAG 1.75 GM in Premix Bag 1 BAG IVPB SCH (13:46)
[2020-11-11 15:01] LABS: Vancomycin, Trough 43.8 ug/mL
[2020-11-11] MEDS: Ivermectin 3 MG TAB PO SCH (16:07)
[2020-11-11] MEDS: Melatonin 3 MG TAB PO SCH (21:05)
[2020-11-12] MEDS: Sodium Bicarbonate 50 MEQ in Sodium Chloride 0.45% 1,000 ML IV SCH ×2 (00:53→16:16)
[2020-11-12] MEDS: Metoprolol Tartrate 5 MG/5 ML VIAL IVP SCH ×4 (00:55→19:42)
[2020-11-12] MEDS: Cefepime 1 GM in Sodium Chloride 0.9% 100 ML IVPB SCH ×2 (02:00→13:40)
[2020-11-12] MEDS: Propofol 1,000 MG/100 ML VIAL IV PRN ×7 (02:00→23:30)
[2020-11-12] MEDS: Fentanyl CADD 100 ML IV SCH ×2 (03:50→17:07)
[2020-11-12 04:03] LABS: ALT (SGPT) 44 U/L (8-55); AST (SGOT) 33 U/L (5-34); Albumin 2.4 g/dL (3.5-5.0); Alkaline Phosphatase 64 U/L (40-110); Anion Gap 16 mmol/L (10-20); BUN (Urea Nitrogen) 53 mg/dL (8.4-25.7); Bilirubin, Direct 0.3 mg/dL (0.1-0.3); Bilirubin, Total 0.5 mg/dL (0.2-1.2); CRP (Inflammatory) 4.09 mg/dL (= or < 0.5); Calc. Creatinine Clearance 75 mL/min (70-130); Calcium 6.9 mg/dL (7.8-10.44); Carbon Dioxide 22 mmol/L (22-29); Chloride 105 mmol/L (98-107); Globulin 2.7 g/dL (2.4-3.5); Glucose 233 mg/dL (70-105); Potassium 4.1 mmol/L (3.5-5.1); Protein, Total 5.1 g/dL (6.0-8.3); Sodium 139 mmol/L (136-145)
[2020-11-12 04:38] LABS: Hemoglobin 11.9 g/dL (14.0-18.0); Mean Corpuscular HGB CONC 33.4 g/dL (32.0-36.0); Mean Corpuscular Volume 95.9 fL (78.0-98.0); Mean Platelet Volume 10.3 fL (7.4-10.4); Platelet Count 196 thou/uL (130-400); RBC Distribution Width 13.5 % (11.5-14.5); Red Blood Cell (RBC) Count 3.73 mill/uL (4.70-6.10); White Blood Cell (WBC) Count 7.6 thou/uL (4.8-10.8)
[2020-11-12 05:03] LABS: Band 15 % (5-11); Lymphocytes 4 % (21-51); MDiff Complete? YES; Neutrophil 81 % (42-75)
[2020-11-12] MEDS: Vecuronium 10 MG VIAL IVP PRN ×5 (07:56→21:40)
[2020-11-12] MEDS: Lorazepam 2 MG/ML VIAL SLOW IVP PRN ×5 (07:56→16:17)
[2020-11-12 08:06] LABS: Actual Bicarbonate (HCO3a) 25.3 mEq/L (22-28); Base Excess (BEa) 2.1 mEq/L (-2.0 to +3.0); CO2 Tension 34.9 mmHg (35.0-45.0); Calcium, Ionized (arterial) 0.95 mmol/L (1.12-1.30); Carboxyhemoglobin (COHb) 0.1 gm% (0.0-3.0); Potassium - ABG Lab 3.49 mmol/L (3.70-5.30); pH, Arterial 7.48 (7.35-7.45)
[2020-11-12 08:08] LABS: ALV-art Gradient 399.075 mmHg (0-20); O2 Tension (PaO2), arterial 56.4 mmHg (80.0-100.0); Puncture Site LRA
[2020-11-12] MEDS ORDERED: Calcium Chloride 13.6 MEQ in Sodium Chloride 0.9% 100 ML IVPB SCH (08:15)
[2020-11-12] MEDS: Cholecalciferol 1,000 UNITS (25 MCG) TAB PO SCH ×2 (08:25→20:01)
[2020-11-12] MEDS: azaTHIOprine 50 MG TAB PO SCH (08:25)
[2020-11-12] MEDS: Ascorbic Acid 500 mg Chewable Tablet PO SCH (08:26)
[2020-11-12] MEDS: Pantoprazole 40 MG VIAL IVP SCH (08:26)
[2020-11-12] MEDS: Enoxaparin Sodium 120 MG/0.8 ML SYRINGE SC SCH (08:26)
[2020-11-12] MEDS: Zinc Sulfate 220 MG CAP PO SCH (08:26)
[2020-11-12 15:07] LABS: Vancomycin, Trough 22.9 ug/mL
[2020-11-12] MEDS: VANCOMYCIN 1.75 GM/350 ML BAG 1.75 GM in Premix Bag 1 BAG IVPB SCH (16:17)
[2020-11-12] MEDS: HumaLOG 300 UNITS/3 ML VIAL SC PRN ×2 (16:49→21:40)
[2020-11-12] MEDS ORDERED: Fentanyl CADD 100 ML ONE (17:04)
[2020-11-12] MEDS: Ivermectin 3 MG TAB PO SCH (17:06)
[2020-11-12] MEDS: Melatonin 3 MG TAB PO SCH (19:43)
[2020-11-13] MEDS: METHYLPREDNISOLONE SOD SUCC IVPB SCH (00:57)
[2020-11-13] MEDS: Cefepime 1 GM in Sodium Chloride 0.9% 100 ML IVPB SCH ×2 (00:57→13:05)
[2020-11-13] MEDS: Metoprolol Tartrate 5 MG/5 ML VIAL IVP SCH ×4 (00:57→17:59)
[2020-11-13] MEDS: SODIUM CHLORIDE 0.9% IVPB SCH (00:57)
[2020-11-13] MEDS: Lorazepam 2 MG/ML VIAL SLOW IVP PRN ×4 (02:11→13:05)
[2020-11-13] MEDS: Vecuronium 10 MG VIAL IVP PRN ×2 (02:27→08:56)
[2020-11-13] MEDS: Propofol 1,000 MG/100 ML VIAL IV PRN ×4 (02:54→17:19)
[2020-11-13] MEDS: Sodium Bicarbonate 50 MEQ in Sodium Chloride 0.45% 1,000 ML IV SCH ×2 (02:55→08:05)
[2020-11-13 04:01] LABS: Hemoglobin 12.2 g/dL (14.0-18.0); Mean Corpuscular HGB CONC 32.7 g/dL (32.0-36.0); Mean Corpuscular Hemoglobin 31.4 pg (27.0-31.0); Mean Corpuscular Volume 96.1 fL (78.0-98.0); Mean Platelet Volume 10.6 fL (7.4-10.4); Platelet Count 149 thou/uL (130-400); RBC Distribution Width 13.4 % (11.5-14.5); Red Blood Cell (RBC) Count 3.88 mill/uL (4.70-6.10); White Blood Cell (WBC) Count 7.7 thou/uL (4.8-10.8)
[2020-11-13 04:15] LABS: ALT (SGPT) 48 U/L (8-55); AST (SGOT) 39 U/L (5-34); Albumin 2.2 g/dL (3.5-5.0); Alkaline Phosphatase 82 U/L (40-110); Anion Gap 15 mmol/L (10-20); BUN (Urea Nitrogen) 54 mg/dL (8.4-25.7); Bilirubin, Direct 0.5 mg/dL (0.1-0.3); Bilirubin, Total 0.7 mg/dL (0.2-1.2); Calc. Creatinine Clearance 84 mL/min (70-130); Calcium 7.2 mg/dL (7.8-10.44); Carbon Dioxide 22 mmol/L (22-29); Chloride 106 mmol/L (98-107); Globulin 2.7 g/dL (2.4-3.5); Glucose 255 mg/dL (70-105); Potassium 3.6 mmol/L (3.5-5.1); Protein, Total 4.9 g/dL (6.0-8.3); Sodium 139 mmol/L (136-145)
[2020-11-13 04:27] LABS: Band 10 % (5-11); Hypochromia SLIGHT = 6-15 cells (100X) (0-5/hpf); Lymphocytes 1 % (21-51); MDiff Complete? YES; Monocytes 1 % (0-10); Neutrophil 88 % (42-75); Platelet Morphology Comment Appears Adequate
[2020-11-13] MEDS: HumaLOG 300 UNITS/3 ML VIAL SC PRN ×4 (06:12→21:00)
[2020-11-13] MEDS: Enoxaparin Sodium 120 MG/0.8 ML SYRINGE SC SCH (08:05)
[2020-11-13] MEDS: Pantoprazole 40 MG VIAL IVP SCH (08:06)
[2020-11-13] MEDS: azaTHIOprine 50 MG TAB PO SCH (08:06)
[2020-11-13] MEDS: Zinc Sulfate 220 MG CAP PO SCH (08:06)
[2020-11-13] MEDS: Cholecalciferol 1,000 UNITS (25 MCG) TAB PO SCH ×2 (08:06→20:51)
[2020-11-13] MEDS: Ascorbic Acid 500 mg Chewable Tablet PO SCH (08:06)
[2020-11-13 09:17] LABS: Actual Bicarbonate (HCO3a) 25.2 mEq/L (22-28); Base Excess (BEa) 2.1 mEq/L (-2.0 to +3.0); CO2 Tension 34.3 mmHg (35.0-45.0); Calcium, Ionized (arterial) 0.97 mmol/L (1.12-1.30); Carboxyhemoglobin (COHb) 0.5 gm% (0.0-3.0); Hemoglobin (Hb) 12.7 g/dL (14.0-18.0); O2 Tension (PaO2), arterial 76.4 mmHg (80.0-100.0); Potassium - ABG Lab 3.32 mmol/L (3.70-5.30); pH, Arterial 7.48 (7.35-7.45)
[2020-11-13 09:19] LABS: Puncture Site RRA
[2020-11-13 09:20] LABS: ALV-art Gradient 379.825 mmHg (0-20)
[2020-11-13] MEDS ORDERED: Fentanyl CADD 100 ML ONE (09:23)
[2020-11-13] MEDS: Fentanyl CADD 100 ML IV SCH (09:27)
[2020-11-13] MEDS: VANCOMYCIN 1.75 GM/350 ML BAG 1.75 GM in Premix Bag 1 BAG IVPB SCH (14:58)
[2020-11-13] MEDS: Ivermectin 3 MG TAB PO SCH (17:19)
[2020-11-13] MEDS: Melatonin 3 MG TAB PO SCH (20:51)
[2020-11-14] MEDS ORDERED: Fentanyl CADD 100 ML ONE ×2 (01:03→16:21)
[2020-11-14] MEDS: Metoprolol Tartrate 5 MG/5 ML VIAL IVP SCH ×4 (01:06→18:33)
[2020-11-14] MEDS: METHYLPREDNISOLONE SOD SUCC IVPB SCH (01:06)
[2020-11-14] MEDS: SODIUM CHLORIDE 0.9% IVPB SCH (01:06)
[2020-11-14] MEDS: Cefepime 1 GM in Sodium Chloride 0.9% 100 ML IVPB SCH ×2 (01:06→13:46)
[2020-11-14] MEDS: Fentanyl CADD 100 ML IV SCH (01:11)
[2020-11-14 03:43] LABS: Hemoglobin 11.8 g/dL (14.0-18.0); Mean Corpuscular HGB CONC 33.7 g/dL (32.0-36.0); Mean Corpuscular Hemoglobin 32.3 pg (27.0-31.0); Mean Corpuscular Volume 95.9 fL (78.0-98.0); Mean Platelet Volume 11.8 fL (7.4-10.4); Platelet Count 126 thou/uL (130-400); RBC Distribution Width 13.6 % (11.5-14.5); Red Blood Cell (RBC) Count 3.67 mill/uL (4.70-6.10); White Blood Cell (WBC) Count 9.5 thou/uL (4.8-10.8)
[2020-11-14 03:58] LABS: ALT (SGPT) 76 U/L (8-55); AST (SGOT) 50 U/L (5-34); Albumin 2.1 g/dL (3.5-5.0); Albumin 2.2 g/dL (3.5-5.0); Alkaline Phosphatase 74 U/L (40-110); Alkaline Phosphatase 77 U/L (40-110); Anion Gap 15 mmol/L (10-20); BUN (Urea Nitrogen) 67 mg/dL (8.4-25.7); Bilirubin, Direct 0.4 mg/dL (0.1-0.3); Bilirubin, Total 0.5 mg/dL (0.2-1.2); Bilirubin, Total 0.6 mg/dL (0.2-1.2); CRP (Inflammatory) 2.09 mg/dL (= or < 0.5); Calc. Creatinine Clearance 87 mL/min (70-130); Calcium 6.7 mg/dL (7.8-10.44); Carbon Dioxide 22 mmol/L (22-29); Chloride 107 mmol/L (98-107); Globulin 2.5 g/dL (2.4-3.5); Glucose 280 mg/dL (70-105); Potassium 3.6 mmol/L (3.5-5.1); Protein, Total 4.6 g/dL (6.0-8.3); Protein, Total 4.7 g/dL (6.0-8.3); Sodium 140 mmol/L (136-145)
[2020-11-14 04:15] LABS: Lymphocytes 2 % (21-51); MDiff Complete? YES; Monocytes 1 % (0-10); Neutrophil 97 % (42-75); Platelet Morphology Comment Appears Decreased
[2020-11-14] MEDS: Propofol 1,000 MG/100 ML VIAL IV PRN ×4 (05:51→20:53)
[2020-11-14] MEDS: Sodium Bicarbonate 50 MEQ in Sodium Chloride 0.45% 1,000 ML IV SCH ×3 (06:28→20:53)
[2020-11-14 07:42] LABS: Actual Bicarbonate (HCO3a) 23.7 mEq/L (22-28); Base Excess (BEa) 0.3 mEq/L (-2.0 to +3.0); CO2 Tension 34.2 mmHg (35.0-45.0); Calcium, Ionized (arterial) 0.97 mmol/L (1.12-1.30); Carboxyhemoglobin (COHb) 0.5 gm% (0.0-3.0); Hemoglobin (Hb) 11.9 g/dL (14.0-18.0); Potassium - ABG Lab 3.58 mmol/L (3.70-5.30); pH, Arterial 7.46 (7.35-7.45)
[2020-11-14 07:44] LABS: Puncture Site RRA
[2020-11-14] MEDS: Ascorbic Acid 500 mg Chewable Tablet PO SCH (08:08)
[2020-11-14] MEDS: azaTHIOprine 50 MG TAB PO SCH (08:09)
[2020-11-14] MEDS: Cholecalciferol 1,000 UNITS (25 MCG) TAB PO SCH ×2 (08:09→20:48)
[2020-11-14] MEDS: Enoxaparin Sodium 120 MG/0.8 ML SYRINGE SC SCH (08:09)
[2020-11-14] MEDS: Zinc Sulfate 220 MG CAP PO SCH (08:10)
[2020-11-14] MEDS: Pantoprazole 40 MG GRANULES PACKET PER TUBE SCH (08:10)
[2020-11-14] MEDS: NPH, Human Insulin Isophane 300 UNIT/3 ML VIAL SC SCH ×2 (08:15→20:51)
[2020-11-14] MEDS: Vecuronium 10 MG VIAL IVP PRN (12:02)
[2020-11-14] MEDS: HumaLOG 300 UNITS/3 ML VIAL SC PRN ×2 (13:02→21:15)
[2020-11-14] MEDS: Ivermectin 3 MG TAB PO SCH (16:28)
[2020-11-14] MEDS: Melatonin 3 MG TAB PO SCH (20:51)
[2020-11-14] MEDS ORDERED: Enoxaparin Sodium 120 MG/0.8 ML SYRINGE SC SCH (21:00)
[2020-11-15] MEDS: Metoprolol Tartrate 5 MG/5 ML VIAL IVP SCH ×4 (01:04→18:31)
[2020-11-15] MEDS: Cefepime 1 GM in Sodium Chloride 0.9% 100 ML IVPB SCH ×2 (01:47→13:04)
[2020-11-15] MEDS: Propofol 1,000 MG/100 ML VIAL IV PRN ×6 (01:47→22:30)
[2020-11-15] MEDS: METHYLPREDNISOLONE SOD SUCC IVPB SCH (01:47)
[2020-11-15] MEDS: SODIUM CHLORIDE 0.9% IVPB SCH (01:47)
[2020-11-15] MEDS: Vecuronium 10 MG VIAL IVP PRN ×3 (03:44→21:27)
[2020-11-15] MEDS: Lorazepam 2 MG/ML VIAL SLOW IVP PRN ×4 (03:44→21:27)
[2020-11-15] MEDS: HumaLOG 300 UNITS/3 ML VIAL SC PRN ×4 (06:43→21:23)
[2020-11-15 06:56] LABS: Actual Bicarbonate (HCO3a) 22.4 mEq/L (22-28); Base Excess (BEa) -1.3 mEq/L (-2.0 to +3.0); CO2 Tension 34.1 mmHg (35.0-45.0); Calcium, Ionized (arterial) 1.04 mmol/L (1.12-1.30); Carboxyhemoglobin (COHb) 0.9 gm% (0.0-3.0); Hemoglobin (Hb) 11.6 g/dL (14.0-18.0); Potassium - ABG Lab 4.06 mmol/L (3.70-5.30); pH, Arterial 7.44 (7.35-7.45)
[2020-11-15 07:29] LABS: O2 Tension (PaO2), arterial 51.1 mmHg (80.0-100.0); Puncture Site RRA
[2020-11-15 07:30] LABS: ALV-art Gradient 405.375 mmHg (0-20)
[2020-11-15 07:42] LABS: ALT (SGPT) 76 U/L (8-55); AST (SGOT) 29 U/L (5-34); Albumin 2.3 g/dL (3.5-5.0); Alkaline Phosphatase 110 U/L (40-110); Anion Gap 14 mmol/L (10-20); BUN (Urea Nitrogen) 78 mg/dL (8.4-25.7); Bilirubin, Total 0.5 mg/dL (0.2-1.2); CRP (Inflammatory) 1.36 mg/dL (= or < 0.5); Calc. Creatinine Clearance 92 mL/min (70-130); Calcium 7.1 mg/dL (7.8-10.44); Carbon Dioxide 24 mmol/L (22-29); Chloride 107 mmol/L (98-107); Globulin 2.6 g/dL (2.4-3.5); Glucose 246 mg/dL (70-105); Potassium 4.2 mmol/L (3.5-5.1); Protein, Total 4.9 g/dL (6.0-8.3); Sodium 141 mmol/L (136-145)
[2020-11-15 07:55] LABS: Band 7 % (5-11); Eosinophils 1 % (0-10); Hemoglobin 11.7 g/dL (14.0-18.0); Large Platelets SLIGHT; Lymphocytes 2 % (21-51); MDiff Complete? YES; Mean Corpuscular HGB CONC 33.9 g/dL (32.0-36.0); Mean Corpuscular Hemoglobin 32.8 pg (27.0-31.0); Mean Corpuscular Volume 96.6 fL (78.0-98.0); Mean Platelet Volume 12.7 fL (7.4-10.4); Metamyelocyte 4 % (0-0); Monocytes 2 % (0-10); Myelocyte 1 % (0-0); Neutrophil 83 % (42-75); Platelet Count 114 thou/uL (130-400); Platelet Morphology Comment Appears Decreased; RBC Distribution Width 13.6 % (11.5-14.5); RBC Morphology Normal; Red Blood Cell (RBC) Count 3.57 mill/uL (4.70-6.10); White Blood Cell (WBC) Count 10.6 thou/uL (4.8-10.8)
[2020-11-15] MEDS ORDERED: Furosemide 40 MG/4 ML VIAL SLOW IVP SCH (08:45)
[2020-11-15] MEDS ORDERED: Fentanyl CADD 100 ML ONE (08:47)
[2020-11-15] MEDS ORDERED: Enoxaparin Sodium 120 MG/0.8 ML SYRINGE SC SCH (09:00)
[2020-11-15] MEDS ORDERED: Enoxaparin Sodium 40 MG/0.4 ML SYRINGE SC SCH (09:00)
[2020-11-15] MEDS: Ascorbic Acid 500 mg Chewable Tablet PO SCH (09:04)
[2020-11-15] MEDS: Cholecalciferol 1,000 UNITS (25 MCG) TAB PO SCH ×2 (09:05→20:53)
[2020-11-15] MEDS: Zinc Sulfate 220 MG CAP PO SCH (09:05)
[2020-11-15] MEDS: azaTHIOprine 50 MG TAB PO SCH (09:05)
[2020-11-15] MEDS: NPH, Human Insulin Isophane 300 UNIT/3 ML VIAL SC SCH ×2 (09:06→20:54)
[2020-11-15] MEDS: Pantoprazole 40 MG GRANULES PACKET PER TUBE SCH (09:07)
[2020-11-15] MEDS: Ivermectin 3 MG TAB PO SCH (17:37)
[2020-11-15] MEDS: Melatonin 3 MG TAB PO SCH (21:57)
[2020-11-16] MEDS: Metoprolol Tartrate 5 MG/5 ML VIAL IVP SCH ×4 (00:02→18:43)
[2020-11-16] MEDS ORDERED: Fentanyl CADD 100 ML ONE ×2 (00:08→15:30)
[2020-11-16] MEDS: Fentanyl CADD 100 ML IV SCH (00:09)
[2020-11-16] MEDS: SODIUM CHLORIDE 0.9% IVPB SCH (00:59)
[2020-11-16] MEDS: METHYLPREDNISOLONE SOD SUCC IVPB SCH (00:59)
[2020-11-16] MEDS: Propofol 1,000 MG/100 ML VIAL IV PRN ×6 (02:21→22:23)
[2020-11-16] MEDS: HumaLOG 300 UNITS/3 ML VIAL SC PRN ×3 (06:15→16:20)
[2020-11-16 06:45] LABS: Hemoglobin 12.4 g/dL (14.0-18.0); Mean Corpuscular HGB CONC 33.3 g/dL (32.0-36.0); Mean Corpuscular Hemoglobin 32.1 pg (27.0-31.0); Mean Corpuscular Volume 96.4 fL (78.0-98.0); Mean Platelet Volume 12.9 fL (7.4-10.4); Platelet Count 113 thou/uL (130-400); RBC Distribution Width 13.8 % (11.5-14.5); Red Blood Cell (RBC) Count 3.87 mill/uL (4.70-6.10); White Blood Cell (WBC) Count 10.8 thou/uL (4.8-10.8)
[2020-11-16 06:52] LABS: Actual Bicarbonate (HCO3a) 24.6 mEq/L (22-28); Base Excess (BEa) 0.9 mEq/L (-2.0 to +3.0); CO2 Tension 36.1 mmHg (35.0-45.0); Calcium, Ionized (arterial) 1.08 mmol/L (1.12-1.30); Hemoglobin (Hb) 13.3 g/dL (14.0-18.0); Potassium - ABG Lab 4.57 mmol/L (3.70-5.30); pH, Arterial 7.45 (7.35-7.45)
[2020-11-16 07:01] LABS: ALT (SGPT) 73 U/L (8-55); AST (SGOT) 30 U/L (5-34); Albumin 2.3 g/dL (3.5-5.0); Alkaline Phosphatase 112 U/L (40-110); BUN (Urea Nitrogen) 84 mg/dL (8.4-25.7); Bilirubin, Total 0.4 mg/dL (0.2-1.2); CRP (Inflammatory) 1.36 mg/dL (= or < 0.5); Calc. Creatinine Clearance 93 mL/min (70-130); Calcium 7.5 mg/dL (7.8-10.44); Carbon Dioxide 20 mmol/L (22-29); Chloride 109 mmol/L (98-107); Globulin 3.1 g/dL (2.4-3.5); Glucose 208 mg/dL (70-105); Potassium 5.6 mmol/L (3.5-5.1); Protein, Total 5.4 g/dL (6.0-8.3); Sodium 142 mmol/L (136-145)
[2020-11-16 07:08] LABS: Anion Gap 19 mmol/L (10-20)
[2020-11-16 07:49] LABS: Band 10 % (5-11); Eosinophils 1 % (0-10); Lymphocytes 6 % (21-51); MDiff Complete? YES; Monocytes 4 % (0-10); Myelocyte 1 % (0-0); Neutrophil 78 % (42-75); Nucleated RBC 1 % (0); Platelet Morphology Comment Appears Decreased
[2020-11-16 07:49] LABS: O2 Tension (PaO2), arterial 51.8 mmHg (80.0-100.0); Puncture Site RRA
[2020-11-16 07:50] LABS: ALV-art Gradient 295.225 mmHg (0-20)
[2020-11-16] MEDS: azaTHIOprine 50 MG TAB PO SCH (08:58)
[2020-11-16] MEDS: Ascorbic Acid 500 mg Chewable Tablet PO SCH (08:58)
[2020-11-16] MEDS: Zinc Sulfate 220 MG CAP PO SCH (08:58)
[2020-11-16] MEDS: Pantoprazole 40 MG GRANULES PACKET PER TUBE SCH (08:58)
[2020-11-16] MEDS: Enoxaparin Sodium 120 MG/0.8 ML SYRINGE SC SCH (08:59)
[2020-11-16] MEDS: NPH, Human Insulin Isophane 300 UNIT/3 ML VIAL SC SCH ×2 (08:59→21:38)
[2020-11-16] MEDS: Cholecalciferol 1,000 UNITS (25 MCG) TAB PO SCH ×2 (09:03→21:36)
[2020-11-16] MEDS: Lorazepam 2 MG/ML VIAL SLOW IVP PRN (14:19)
[2020-11-16] MEDS: Ivermectin 3 MG TAB PO SCH (18:00)
[2020-11-16] MEDS: Melatonin 3 MG TAB PO SCH (21:54)
[2020-11-17] MEDS: Metoprolol Tartrate 5 MG/5 ML VIAL IVP SCH ×4 (01:05→18:41)
[2020-11-17] MEDS: METHYLPREDNISOLONE SOD SUCC IVPB SCH (02:15)
[2020-11-17] MEDS: SODIUM CHLORIDE 0.9% IVPB SCH (02:15)
[2020-11-17] MEDS: Propofol 1,000 MG/100 ML VIAL IV PRN ×6 (02:38→21:31)
[2020-11-17 06:33] LABS: ALT (SGPT) 62 U/L (8-55); AST (SGOT) 29 U/L (5-34); Albumin 2.4 g/dL (3.5-5.0); Alkaline Phosphatase 108 U/L (40-110); Anion Gap 15 mmol/L (10-20); Bilirubin, Total 0.4 mg/dL (0.2-1.2); CRP (Inflammatory) 1.53 mg/dL (= or < 0.5); Calc. Creatinine Clearance 99 mL/min (70-130); Calcium 7.6 mg/dL (7.8-10.44); Carbon Dioxide 22 mmol/L (22-29); Chloride 110 mmol/L (98-107); Globulin 2.6 g/dL (2.4-3.5); Glucose 200 mg/dL (70-105); Potassium 5.5 mmol/L (3.5-5.1); Sodium 141 mmol/L (136-145)
[2020-11-17 06:34] LABS: BUN (Urea Nitrogen) 81 mg/dL (8.4-25.7)
[2020-11-17 06:45] LABS: Band 7 % (5-11); Hemoglobin 11.5 g/dL (14.0-18.0); Lymphocytes 6 % (21-51); MDiff Complete? YES; Mean Corpuscular HGB CONC 32.8 g/dL (32.0-36.0); Mean Corpuscular Hemoglobin 31.8 pg (27.0-31.0); Mean Corpuscular Volume 96.9 fL (78.0-98.0); Mean Platelet Volume 12.6 fL (7.4-10.4); Metamyelocyte 2 % (0-0); Monocytes 7 % (0-10); Myelocyte 2 % (0-0); Neutrophil 76 % (42-75); Platelet Count 90 thou/uL (130-400); Platelet Morphology Comment Appears Decreased; RBC Distribution Width 14.1 % (11.5-14.5); Red Blood Cell (RBC) Count 3.63 mill/uL (4.70-6.10)
[2020-11-17 07:08] LABS: Actual Bicarbonate (HCO3a) 23.6 mEq/L (22-28); Base Excess (BEa) 0.5 mEq/L (-2.0 to +3.0); CO2 Tension 33.1 mmHg (35.0-45.0); Calcium, Ionized (arterial) 1.07 mmol/L (1.12-1.30); Carboxyhemoglobin (COHb) 0.9 gm% (0.0-3.0); Hemoglobin (Hb) 12.9 g/dL (14.0-18.0); pH, Arterial 7.47 (7.35-7.45)
[2020-11-17] MEDS ORDERED: Fentanyl CADD 100 ML ONE ×2 (07:31→21:00)
[2020-11-17] MEDS: HumaLOG 300 UNITS/3 ML VIAL SC PRN ×3 (07:35→21:09)
[2020-11-17] MEDS: Enoxaparin Sodium 120 MG/0.8 ML SYRINGE SC SCH (08:42)
[2020-11-17] MEDS: Pantoprazole 40 MG GRANULES PACKET PER TUBE SCH (08:43)
[2020-11-17] MEDS: Ascorbic Acid 500 mg Chewable Tablet PO SCH (08:43)
[2020-11-17] MEDS: azaTHIOprine 50 MG TAB PO SCH (08:43)
[2020-11-17] MEDS: Zinc Sulfate 220 MG CAP PO SCH (08:43)
[2020-11-17] MEDS: NPH, Human Insulin Isophane 300 UNIT/3 ML VIAL SC SCH ×2 (09:11→20:41)
[2020-11-17] MEDS: Cholecalciferol 1,000 UNITS (25 MCG) TAB PO SCH ×2 (09:24→20:40)
[2020-11-17 10:42] LABS: ALV-art Gradient 293.375 mmHg (0-20); O2 Tension (PaO2), arterial 57.4 mmHg (80.0-100.0); Puncture Site RRA
[2020-11-17] MEDS: Ivermectin 3 MG TAB PO SCH (18:12)
[2020-11-17] MEDS ORDERED: Enoxaparin Sodium 120 MG/0.8 ML SYRINGE SC SCH (21:00)
[2020-11-17] MEDS: Melatonin 3 MG TAB PO SCH (21:32)
[2020-11-18] MEDS: Metoprolol Tartrate 5 MG/5 ML VIAL IVP SCH ×2 (00:22→06:03)
[2020-11-18] MEDS: Propofol 1,000 MG/100 ML VIAL IV PRN ×5 (02:30→20:48)
[2020-11-18] MEDS: SODIUM CHLORIDE 0.9% IVPB SCH (04:24)
[2020-11-18] MEDS: METHYLPREDNISOLONE SOD SUCC IVPB SCH (04:24)
[2020-11-18 06:46] LABS: ALT (SGPT) 62 U/L (8-55); AST (SGOT) 26 U/L (5-34); Albumin 2.6 g/dL (3.5-5.0); Alkaline Phosphatase 118 U/L (40-110); Anion Gap 14 mmol/L (10-20); BUN (Urea Nitrogen) 78 mg/dL (8.4-25.7); Bilirubin, Total 0.4 mg/dL (0.2-1.2); Calc. Creatinine Clearance 95 mL/min (70-130); Calcium 7.9 mg/dL (7.8-10.44); Carbon Dioxide 23 mmol/L (22-29); Chloride 112 mmol/L (98-107); Globulin 2.7 g/dL (2.4-3.5); Glucose 180 mg/dL (70-105); Potassium 6.1 mmol/L (3.5-5.1); Protein, Total 5.3 g/dL (6.0-8.3); Sodium 143 mmol/L (136-145)
[2020-11-18 07:13] LABS: Hemoglobin 11.9 g/dL (14.0-18.0); Mean Corpuscular HGB CONC 33.1 g/dL (32.0-36.0); Mean Corpuscular Hemoglobin 32.2 pg (27.0-31.0); Mean Corpuscular Volume 97.3 fL (78.0-98.0); Mean Platelet Volume 12.7 fL (7.4-10.4); Platelet Count 123 thou/uL (130-400); RBC Distribution Width 14.5 % (11.5-14.5); Red Blood Cell (RBC) Count 3.68 mill/uL (4.70-6.10); White Blood Cell (WBC) Count 11.4 thou/uL (4.8-10.8)
[2020-11-18] MEDS: HumaLOG 300 UNITS/3 ML VIAL SC PRN ×3 (07:13→20:49)
[2020-11-18 07:45] LABS: Band 14 % (5-11); Lymphocytes 3 % (21-51); MDiff Complete? YES; Metamyelocyte 4 % (0-0); Monocytes 2 % (0-10); Myelocyte 3 % (0-0); Neutrophil 72 % (42-75); Platelet Morphology Comment Appears Decreased; Polychromasia SLIGHT = 2-3 cells (100X) (0-2/hpf); Promyelocytes 1 % (0-0); Reactive Lymphocytes 1 % (0-10)
[2020-11-18 08:24] LABS: Actual Bicarbonate (HCO3a) 22.8 mEq/L (22-28); Base Excess (BEa) -0.8 mEq/L (-2.0 to +3.0); CO2 Tension 34.4 mmHg (35.0-45.0); Calcium, Ionized (arterial) 1.13 mmol/L (1.12-1.30); Carboxyhemoglobin (COHb) 0.9 gm% (0.0-3.0); Hemoglobin (Hb) 12.7 g/dL (14.0-18.0); Potassium - ABG Lab 5.77 mmol/L (3.70-5.30); pH, Arterial 7.44 (7.35-7.45)
[2020-11-18 08:30] LABS: O2 Tension (PaO2), arterial 59.4 mmHg (80.0-100.0); Puncture Site RRA
[2020-11-18] MEDS: Cholecalciferol 1,000 UNITS (25 MCG) TAB PO SCH ×2 (08:55→20:46)
[2020-11-18] MEDS: Ascorbic Acid 500 mg Chewable Tablet PO SCH (08:55)
[2020-11-18] MEDS: azaTHIOprine 50 MG TAB PO SCH (08:56)
[2020-11-18] MEDS: Zinc Sulfate 220 MG CAP PO SCH (08:56)
[2020-11-18] MEDS: Pantoprazole 40 MG GRANULES PACKET PER TUBE SCH (08:56)
[2020-11-18] MEDS: NPH, Human Insulin Isophane 300 UNIT/3 ML VIAL SC SCH ×2 (08:57→20:50)
[2020-11-18] MEDS ORDERED: Fentanyl CADD 100 ML ONE ×2 (09:25→22:05)
[2020-11-18] MEDS: Metoprolol Tartrate 5 MG/5 ML VIAL IVP PRN (10:36)
[2020-11-18 11:48] LABS: Potassium 5.8 mmol/L (3.5-5.1)
[2020-11-18 12:12] LABS: Free T4 (Free Thyroxine) 0.54 ng/dL (0.70-1.48)
[2020-11-18] MEDS: Lorazepam 2 MG/ML VIAL SLOW IVP PRN (12:17)
[2020-11-18] MEDS: Vecuronium 10 MG VIAL IVP PRN (13:50)
[2020-11-18] MEDS: Ivermectin 3 MG TAB PO SCH (16:29)
[2020-11-18 18:28] LABS: Potassium 6.3 mmol/L (3.5-5.1)
[2020-11-18] MEDS: Metoprolol Tartrate 25 MG TAB PER TUBE SCH (20:45)
[2020-11-18] MEDS: Apixaban 5 MG TAB PER TUBE SCH (20:45)
[2020-11-18] MEDS: Melatonin 3 MG TAB PO SCH (20:46)
[2020-11-19] MEDS: Propofol 1,000 MG/100 ML VIAL IV PRN ×7 (00:01→22:40)
[2020-11-19 04:39] LABS: ALT (SGPT) 56 U/L (8-55); AST (SGOT) 24 U/L (5-34); Albumin 2.3 g/dL (3.5-5.0); Alkaline Phosphatase 112 U/L (40-110); Anion Gap 12 mmol/L (10-20); BUN (Urea Nitrogen) 71 mg/dL (8.4-25.7); Bilirubin, Total 0.4 mg/dL (0.2-1.2); Calc. Creatinine Clearance 96 mL/min (70-130); Calcium 7.9 mg/dL (7.8-10.44); Carbon Dioxide 26 mmol/L (22-29); Chloride 114 mmol/L (98-107); Globulin 2.5 g/dL (2.4-3.5); Glucose 144 mg/dL (70-105); Potassium 6.2 mmol/L (3.5-5.1); Protein, Total 4.8 g/dL (6.0-8.3); Sodium 146 mmol/L (136-145)
[2020-11-19 04:45] LABS: Band 10 % (5-11); Hemoglobin 10.7 g/dL (14.0-18.0); Lymphocytes 4 % (21-51); MDiff Complete? YES; Mean Corpuscular HGB CONC 33.4 g/dL (32.0-36.0); Mean Corpuscular Hemoglobin 32.9 pg (27.0-31.0); Mean Corpuscular Volume 98.7 fL (78.0-98.0); Mean Platelet Volume 12.7 fL (7.4-10.4); Monocytes 6 % (0-10); Myelocyte 1 % (0-0); Neutrophil 79 % (42-75); Platelet Count 109 thou/uL (130-400); Platelet Morphology Comment Appears Decreased; RBC Distribution Width 14.6 % (11.5-14.5); Red Blood Cell (RBC) Count 3.26 mill/uL (4.70-6.10); White Blood Cell (WBC) Count 8.7 thou/uL (4.8-10.8)
[2020-11-19] MEDS: METHYLPREDNISOLONE SOD SUCC IVPB SCH (05:51)
[2020-11-19] MEDS: SODIUM CHLORIDE 0.9% IVPB SCH (05:51)
[2020-11-19 06:54] LABS: Actual Bicarbonate (HCO3a) 25.1 mEq/L (22-28); Base Excess (BEa) 0.8 mEq/L (-2.0 to +3.0); CO2 Tension 39.1 mmHg (35.0-45.0); Calcium, Ionized (arterial) 1.11 mmol/L (1.12-1.30); Carboxyhemoglobin (COHb) 1.1 gm% (0.0-3.0); Hemoglobin (Hb) 12.6 g/dL (14.0-18.0); pH, Arterial 7.43 (7.35-7.45)
[2020-11-19 06:55] LABS: ALV-art Gradient 248.425 mmHg (0-20); O2 Tension (PaO2), arterial 59.2 mmHg (80.0-100.0); Puncture Site RRA
[2020-11-19] MEDS ORDERED: Furosemide 40 MG/4 ML VIAL SLOW IVP SCH (08:15)
[2020-11-19] MEDS: Apixaban 5 MG TAB PER TUBE SCH ×2 (08:55→21:36)
[2020-11-19] MEDS: Cholecalciferol 1,000 UNITS (25 MCG) TAB PO SCH ×2 (08:55→21:36)
[2020-11-19] MEDS: Zinc Sulfate 220 MG CAP PO SCH (08:55)
[2020-11-19] MEDS: Ascorbic Acid 500 mg Chewable Tablet PO SCH (08:55)
[2020-11-19] MEDS: NPH, Human Insulin Isophane 300 UNIT/3 ML VIAL SC SCH ×2 (08:55→21:36)
[2020-11-19] MEDS: Pantoprazole 40 MG GRANULES PACKET PER TUBE SCH (08:55)
[2020-11-19] MEDS: Metoprolol Tartrate 25 MG TAB PER TUBE SCH ×2 (08:55→21:36)
[2020-11-19] MEDS: azaTHIOprine 50 MG TAB PO SCH (08:55)
[2020-11-19] MEDS ORDERED: Fentanyl CADD 100 ML ONE ×2 (10:24→23:42)
[2020-11-19] MEDS: HumaLOG 300 UNITS/3 ML VIAL SC PRN (11:09)
[2020-11-19 18:35] LABS: Potassium 6.1 mmol/L (3.5-5.1)
[2020-11-19] MEDS: Melatonin 3 MG TAB PO SCH (21:35)
[2020-11-20] MEDS: Propofol 1,000 MG/100 ML VIAL IV PRN ×5 (02:17→17:22)
[2020-11-20] MEDS: METHYLPREDNISOLONE SOD SUCC IVPB SCH (06:34)
[2020-11-20] MEDS: SODIUM CHLORIDE 0.9% IVPB SCH (06:34)
[2020-11-20 07:46] LABS: Actual Bicarbonate (HCO3a) 23.3 mEq/L (22-28); Base Excess (BEa) -0.1 mEq/L (-2.0 to +3.0); CO2 Tension 33.8 mmHg (35.0-45.0); Calcium, Ionized (arterial) 1.13 mmol/L (1.12-1.30); Carboxyhemoglobin (COHb) 0.9 gm% (0.0-3.0); Hemoglobin (Hb) 11.9 g/dL (14.0-18.0); O2 Tension (PaO2), arterial 65.8 mmHg (80.0-100.0); Potassium - ABG Lab 5.35 mmol/L (3.70-5.30); pH, Arterial 7.46 (7.35-7.45)
[2020-11-20 07:50] LABS: Puncture Site RRA
[2020-11-20 07:55] LABS: Hemoglobin 11.6 g/dL (14.0-18.0); Mean Corpuscular HGB CONC 33.5 g/dL (32.0-36.0); Mean Corpuscular Hemoglobin 33.1 pg (27.0-31.0); Mean Corpuscular Volume 98.9 fL (78.0-98.0); Mean Platelet Volume 11.9 fL (7.4-10.4); Platelet Count 119 thou/uL (130-400); RBC Distribution Width 14.9 % (11.5-14.5); White Blood Cell (WBC) Count 10.3 thou/uL (4.8-10.8)
[2020-11-20 08:09] LABS: ALT (SGPT) 63 U/L (8-55); AST (SGOT) 25 U/L (5-34); Albumin 2.6 g/dL (3.5-5.0); Alkaline Phosphatase 112 U/L (40-110); Anion Gap 14 mmol/L (10-20); BUN (Urea Nitrogen) 72 mg/dL (8.4-25.7); Bilirubin, Total 0.5 mg/dL (0.2-1.2); Calc. Creatinine Clearance 0 mL/min (70-130); Calcium 8.1 mg/dL (7.8-10.44); Carbon Dioxide 27 mmol/L (22-29); Chloride 111 mmol/L (98-107); Globulin 2.7 g/dL (2.4-3.5); Glucose 135 mg/dL (70-105); Potassium 5.6 mmol/L (3.5-5.1); Protein, Total 5.3 g/dL (6.0-8.3); Sodium 146 mmol/L (136-145)
[2020-11-20 09:04] LABS: Band 4 % (5-11); Lymphocytes 3 % (21-51); MDiff Complete? YES; Monocytes 4 % (0-10); Neutrophil 89 % (42-75); Polychromasia SLIGHT = 2-3 cells (100X) (0-2/hpf)
[2020-11-20] MEDS: Zinc Sulfate 220 MG CAP PO SCH (09:18)
[2020-11-20] MEDS: Ascorbic Acid 500 mg Chewable Tablet PO SCH (09:19)
[2020-11-20] MEDS: azaTHIOprine 50 MG TAB PO SCH (09:19)
[2020-11-20] MEDS: Metoprolol Tartrate 25 MG TAB PER TUBE SCH ×2 (09:19→21:44)
[2020-11-20] MEDS: Apixaban 5 MG TAB PER TUBE SCH ×2 (09:19→21:44)
[2020-11-20] MEDS: Pantoprazole 40 MG GRANULES PACKET PER TUBE SCH (09:19)
[2020-11-20] MEDS: NPH, Human Insulin Isophane 300 UNIT/3 ML VIAL SC SCH ×2 (09:20→21:45)
[2020-11-20] MEDS: Cholecalciferol 1,000 UNITS (25 MCG) TAB PO SCH ×2 (09:24→21:44)
[2020-11-20] MEDS ORDERED: Fentanyl CADD 100 ML ONE (12:27)
[2020-11-20] MEDS: Melatonin 3 MG TAB PO SCH (21:45)
[2020-11-21] MEDS ORDERED: Fentanyl CADD 100 ML ONE ×2 (00:21→12:51)
[2020-11-21] MEDS: Propofol 1,000 MG/100 ML VIAL IV PRN ×4 (00:59→12:35)
[2020-11-21] MEDS: SODIUM CHLORIDE 0.9% IVPB SCH ×2 (05:47→09:15)
[2020-11-21] MEDS: METHYLPREDNISOLONE SOD SUCC IVPB SCH ×2 (05:47→09:15)
[2020-11-21 07:25] LABS: Actual Bicarbonate (HCO3a) 24.9 mEq/L (22-28); Base Excess (BEa) 0.2 mEq/L (-2.0 to +3.0); CO2 Tension 40.8 mmHg (35.0-45.0); Calcium, Ionized (arterial) 1.13 mmol/L (1.12-1.30); Carboxyhemoglobin (COHb) 1.4 gm% (0.0-3.0); Hemoglobin (Hb) 12.5 g/dL (14.0-18.0); Potassium - ABG Lab 5.14 mmol/L (3.70-5.30)
[2020-11-21 07:28] LABS: Puncture Site RRA
[2020-11-21 07:56] LABS: ALT (SGPT) 83 U/L (8-55); AST (SGOT) 31 U/L (5-34); Albumin 2.7 g/dL (3.5-5.0); Alkaline Phosphatase 123 U/L (40-110); Anion Gap 14 mmol/L (10-20); BUN (Urea Nitrogen) 69 mg/dL (8.4-25.7); Bilirubin, Total 0.6 mg/dL (0.2-1.2); Calc. Creatinine Clearance 102 mL/min (70-130); Carbon Dioxide 26 mmol/L (22-29); Chloride 112 mmol/L (98-107); Glucose 114 mg/dL (70-105); Potassium 5.7 mmol/L (3.5-5.1); Protein, Total 5.7 g/dL (6.0-8.3); Sodium 146 mmol/L (136-145)
[2020-11-21 08:00] LABS: Hemoglobin 12.4 g/dL (14.0-18.0); Mean Corpuscular HGB CONC 31.8 g/dL (32.0-36.0); Mean Corpuscular Hemoglobin 32.1 pg (27.0-31.0); Mean Platelet Volume 11.8 fL (7.4-10.4); Platelet Count 127 thou/uL (130-400); RBC Distribution Width 15.2 % (11.5-14.5); Red Blood Cell (RBC) Count 3.86 mill/uL (4.70-6.10); White Blood Cell (WBC) Count 12.7 thou/uL (4.8-10.8)
[2020-11-21] MEDS ORDERED: Furosemide 40 MG/4 ML VIAL SLOW IVP SCH (08:00)
[2020-11-21 08:06] LABS: Band 8 % (5-11); Lymphocytes 1 % (21-51); Metamyelocyte 1 % (0-0); Monocytes 2 % (0-10); Neutrophil 88 % (42-75)
[2020-11-21 08:07] LABS: MDiff Complete? YES
[2020-11-21 08:08] LABS: RBC Morphology Normal
[2020-11-21 08:09] LABS: Large Platelets SLIGHT; Platelet Morphology Comment Appears Decreased
[2020-11-21] MEDS: Pantoprazole 40 MG GRANULES PACKET PER TUBE SCH (09:15)
[2020-11-21] MEDS: Lorazepam 2 MG/ML VIAL SLOW IVP PRN ×2 (09:15→11:36)
[2020-11-21] MEDS: Zinc Sulfate 220 MG CAP PO SCH (09:15)
[2020-11-21] MEDS: Ascorbic Acid 500 mg Chewable Tablet PO SCH (09:16)
[2020-11-21] MEDS: azaTHIOprine 50 MG TAB PO SCH (09:16)
[2020-11-21] MEDS: Cholecalciferol 1,000 UNITS (25 MCG) TAB PO SCH ×2 (09:16→20:41)
[2020-11-21] MEDS: Apixaban 5 MG TAB PER TUBE SCH ×2 (09:17→20:41)
[2020-11-21] MEDS: NPH, Human Insulin Isophane 300 UNIT/3 ML VIAL SC SCH ×2 (09:17→21:46)
[2020-11-21] MEDS: Metoprolol Tartrate 25 MG TAB PER TUBE SCH ×2 (09:17→21:51)
[2020-11-21] MEDS: Acetaminophen 650 MG/20.3 ML UDCUP PO PRN ×2 (11:35→20:40)
[2020-11-21] MEDS: Fentanyl CADD 100 ML IV SCH (12:34)
[2020-11-21] MEDS: Melatonin 3 MG TAB PO SCH (20:40)
[2020-11-22 00:11] LABS: Hemoglobin 11.6 g/dL (14.0-18.0); Mean Corpuscular HGB CONC 31.3 g/dL (32.0-36.0); Mean Corpuscular Hemoglobin 31.3 pg (27.0-31.0); Mean Corpuscular Volume 99.9 fL (78.0-98.0); Platelet Count 143 thou/uL (130-400); RBC Distribution Width 16.8 % (11.5-14.5); Red Blood Cell (RBC) Count 3.71 mill/uL (4.70-6.10); White Blood Cell (WBC) Count 7.1 thou/uL (4.8-10.8)
[2020-11-22] MEDS ORDERED: Fentanyl CADD 100 ML ONE ×3 (00:15→22:41)
[2020-11-22 00:22] LABS: Bacteria/HPF None Seen HPF (None Seen); Bilirubin Negative (Negative); Blood, Urine Negative (Negative); Clarity Turbid (Clear); Glucose, Urine (Dipstick) Normal (Negative); Ketone, Urine Negative (Negative); Leukocyte Negative Leu/uL (Negative); Nitrite Negative (Negative); Protein, Urine (Dipstick) 50 mg/dL (Neg-Trace); Specific Gravity, Urine 1.025 (1.002-1.036); Squamous Epithelial 0-3 HPF (0-3); Yeast-Budding 2+ HPF (None Seen)
[2020-11-22 00:33] LABS: Band 2 % (5-11); Lymphocytes 6 % (21-51); MDiff Complete? YES; Mean Platelet Volume 12.6 fL (7.4-10.4); Metamyelocyte 1 % (0-0); Monocytes 1 % (0-10); Neutrophil 90 % (42-75); Nucleated RBC 1 % (0); Platelet Morphology Comment Appears Adequate
[2020-11-22 00:34] LABS: Urine Culture Reflex Yes Yes
[2020-11-22 00:54] LABS: Albumin 1.8 g/dL (3.5-5.0)
[2020-11-22 00:55] LABS: Calcium 7.1 mg/dL (7.8-10.44); Chloride 113 mmol/L (98-107); Potassium 5.3 mmol/L (3.5-5.1); Sodium 147 mmol/L (136-145)
[2020-11-22 00:56] LABS: Globulin 1.9 g/dL (2.4-3.5); Glucose 92 mg/dL (70-105)
[2020-11-22 00:58] LABS: Anion Gap 14 mmol/L (10-20); Carbon Dioxide 25 mmol/L (22-29)
[2020-11-22 00:59] LABS: Alkaline Phosphatase 76 U/L (40-110)
[2020-11-22 01:00] LABS: BUN (Urea Nitrogen) 96 mg/dL (8.4-25.7); Protein, Total 3.7 g/dL (6.0-8.3)
[2020-11-22 01:01] LABS: Lactic Acid 2.5 mmol/L (0.5-2.2)
[2020-11-22 01:02] LABS: ALT (SGPT) 78 U/L (8-55); AST (SGOT) 33 U/L (5-34)
[2020-11-22 01:05] LABS: Calc. Creatinine Clearance 62 mL/min (70-130)
[2020-11-22] MEDS: Acetaminophen 650 MG/20.3 ML UDCUP PO PRN ×3 (02:23→17:10)
[2020-11-22] MEDS: Metoprolol Tartrate 5 MG/5 ML VIAL IVP PRN ×2 (02:24→16:47)
[2020-11-22] MEDS: METHYLPREDNISOLONE SOD SUCC IVPB SCH (06:29)
[2020-11-22] MEDS: SODIUM CHLORIDE 0.9% IVPB SCH (06:29)
[2020-11-22] MEDS ORDERED: VANCOMYCIN 1.25 GM/250 ML BAG IVPB SCH (06:30)
[2020-11-22 06:47] LABS: ALT (SGPT) 106 U/L (8-55); AST (SGOT) 55 U/L (5-34); Albumin 2.3 g/dL (3.5-5.0); Alkaline Phosphatase 95 U/L (40-110); Anion Gap 20 mmol/L (10-20); BUN (Urea Nitrogen) 92 mg/dL (8.4-25.7); Bilirubin, Total 0.9 mg/dL (0.2-1.2); Calc. Creatinine Clearance 55 mL/min (70-130); Carbon Dioxide 20 mmol/L (22-29); Chloride 114 mmol/L (98-107); Glucose 87 mg/dL (70-105); Potassium 5.6 mmol/L (3.5-5.1); Protein, Total 5.3 g/dL (6.0-8.3); Sodium 148 mmol/L (136-145)
[2020-11-22 06:57] LABS: Eosinophils 1 % (0-10); Hemoglobin 11.7 g/dL (14.0-18.0); Lymphocytes 6 % (21-51); MDiff Complete? YES; Mean Corpuscular HGB CONC 32.2 g/dL (32.0-36.0); Mean Corpuscular Hemoglobin 32.9 pg (27.0-31.0); Mean Platelet Volume 11.9 fL (7.4-10.4); Metamyelocyte 3 % (0-0); Neutrophil 90 % (42-75); Platelet Count 105 thou/uL (130-400); Platelet Morphology Comment Appears Decreased; RBC Distribution Width 15.3 % (11.5-14.5); Red Blood Cell (RBC) Count 3.55 mill/uL (4.70-6.10); White Blood Cell (WBC) Count 6.1 thou/uL (4.8-10.8)
[2020-11-22 07:14] LABS: Base Excess (BEa) 2.6 mEq/L (-2.0 to +3.0); CO2 Tension 40.7 mmHg (35.0-45.0); Calcium, Ionized (arterial) 1.06 mmol/L (1.12-1.30); Carboxyhemoglobin (COHb) 0.5 gm% (0.0-3.0); Hemoglobin (Hb) 11.9 g/dL (14.0-18.0); Potassium - ABG Lab 4.53 mmol/L (3.70-5.30); pH, Arterial 7.44 (7.35-7.45)
[2020-11-22 07:18] LABS: O2 Tension (PaO2), arterial 55.2 mmHg (80.0-100.0); Puncture Site RRA
[2020-11-22 07:19] LABS: ALV-art Gradient 606.925 mmHg (0-20)
[2020-11-22] MEDS ORDERED: VANCOMYCIN 2 GRAM/400 ML BAG 2 GM in Premix Bag 1 BAG IVPB SCH (08:00)
[2020-11-22] MEDS: Dextrose 5% in Water 1,000 ML IV SCH ×2 (08:30→21:48)
[2020-11-22] MEDS: VANCOMYCIN 1.75 GM/350 ML BAG 1.75 GM in Premix Bag 1 BAG IVPB SCH (09:32)
[2020-11-22] MEDS: Cefepime 1 GM in Sodium Chloride 0.9% 100 ML IVPB SCH ×2 (09:36→21:35)
[2020-11-22] MEDS: Zinc Sulfate 220 MG CAP PO SCH (09:38)
[2020-11-22] MEDS: Ascorbic Acid 500 mg Chewable Tablet PO SCH (09:38)
[2020-11-22] MEDS: azaTHIOprine 50 MG TAB PO SCH (09:39)
[2020-11-22] MEDS: Cholecalciferol 1,000 UNITS (25 MCG) TAB PO SCH ×2 (09:39→21:46)
[2020-11-22] MEDS: Metoprolol Tartrate 25 MG TAB PER TUBE SCH ×2 (09:39→21:38)
[2020-11-22] MEDS: Apixaban 5 MG TAB PER TUBE SCH ×2 (09:39→21:38)
[2020-11-22] MEDS: Pantoprazole 40 MG GRANULES PACKET PER TUBE SCH (09:39)
[2020-11-22] MEDS: NPH, Human Insulin Isophane 300 UNIT/3 ML VIAL SC SCH ×2 (09:40→21:38)
[2020-11-22] MEDS: Micafungin 100 MG in Sodium Chloride 0.9% 100 ML IVPB SCH (09:44)
[2020-11-22] MEDS: Fentanyl CADD 100 ML IV SCH ×2 (12:39→22:45)
[2020-11-22] MEDS ORDERED: Piperacillin/Tazobactam 3.375 GM in Sodium Chloride 0.9% 100 ML IVPB SCH (14:00)
[2020-11-22] MEDS: Lorazepam 2 MG/ML VIAL SLOW IVP PRN (15:27)
[2020-11-22] MEDS: Amiodarone 450 MG, Admixture Fee 1 EACH in Dextrose 5% in Water 250 ML IVPB SCH (17:10)
[2020-11-22] MEDS ORDERED: Digoxin 0.5 MG/2 ML AMP ONE (17:53)
[2020-11-22] MEDS ORDERED: Digoxin 0.5 MG/2 ML AMP SLOW IVP SCH (18:15)
[2020-11-22] MEDS: Melatonin 3 MG TAB PO SCH (21:38)
[2020-11-23] MEDS: Amiodarone 450 MG, Admixture Fee 1 EACH in Dextrose 5% in Water 250 ML IVPB SCH ×2 (00:29→15:05)
[2020-11-23 03:49] LABS: Band 32 % (5-11); Hemoglobin 9.6 g/dL (14.0-18.0); Hypochromia SLIGHT = 6-15 cells (100X) (0-5/hpf); Lymphocytes 2 % (21-51); MDiff Complete? YES; Macrocytosis SLIGHT = 6-15 cells (100X) (0-5/hpf); Mean Corpuscular HGB CONC 31.9 g/dL (32.0-36.0); Mean Corpuscular Hemoglobin 32.4 pg (27.0-31.0); Mean Platelet Volume 11.3 fL (7.4-10.4); Monocytes 6 % (0-10); Neutrophil 60 % (42-75); Platelet Count 78 thou/uL (130-400); Platelet Morphology Comment Appears Decreased; RBC Distribution Width 14.8 % (11.5-14.5); Red Blood Cell (RBC) Count 2.97 mill/uL (4.70-6.10); White Blood Cell (WBC) Count 2.6 thou/uL (4.8-10.8)
[2020-11-23 03:52] LABS: ALT (SGPT) 69 U/L (8-55); AST (SGOT) 42 U/L (5-34); Albumin 2.3 g/dL (3.5-5.0); Alkaline Phosphatase 74 U/L (40-110); Anion Gap 16 mmol/L (10-20); BUN (Urea Nitrogen) 100 mg/dL (8.4-25.7); Bilirubin, Total 0.6 mg/dL (0.2-1.2); Calc. Creatinine Clearance 51 mL/min (70-130); Calcium 7.7 mg/dL (7.8-10.44); Carbon Dioxide 24 mmol/L (22-29); Chloride 110 mmol/L (98-107); Globulin 2.8 g/dL (2.4-3.5); Glucose 194 mg/dL (70-105); Potassium 4.7 mmol/L (3.5-5.1); Protein, Total 5.1 g/dL (6.0-8.3); Sodium 145 mmol/L (136-145)
[2020-11-23 07:12] LABS: Actual Bicarbonate (HCO3a) 23.6 mEq/L (22-28); Base Excess (BEa) -0.8 mEq/L (-2.0 to +3.0); CO2 Tension 37.8 mmHg (35.0-45.0); Calcium, Ionized (arterial) 1.04 mmol/L (1.12-1.30); Carboxyhemoglobin (COHb) 0.7 gm% (0.0-3.0); Hemoglobin (Hb) 10.2 g/dL (14.0-18.0); Potassium - ABG Lab 4.38 mmol/L (3.70-5.30); pH, Arterial 7.41 (7.35-7.45)
[2020-11-23 07:36] LABS: O2 Tension (PaO2), arterial 50.5 mmHg (80.0-100.0)
[2020-11-23 07:37] LABS: Puncture Site RRA
[2020-11-23] MEDS: Apixaban 5 MG TAB PER TUBE SCH ×2 (07:58→21:41)
[2020-11-23] MEDS: SODIUM CHLORIDE 0.9% IVPB SCH ×2 (07:59→08:23)
[2020-11-23] MEDS: Metoprolol Tartrate 25 MG TAB PER TUBE SCH ×2 (07:59→21:41)
[2020-11-23] MEDS: Zinc Sulfate 220 MG CAP PO SCH (07:59)
[2020-11-23] MEDS: METHYLPREDNISOLONE SOD SUCC IVPB SCH ×2 (07:59→08:23)
[2020-11-23] MEDS: Ascorbic Acid 500 mg Chewable Tablet PO SCH (07:59)
[2020-11-23] MEDS: Pantoprazole 40 MG GRANULES PACKET PER TUBE SCH (07:59)
[2020-11-23] MEDS: Acetaminophen 650 MG/20.3 ML UDCUP PO PRN ×2 (08:00→16:31)
[2020-11-23] MEDS: azaTHIOprine 50 MG TAB PO SCH (08:00)
[2020-11-23] MEDS: NPH, Human Insulin Isophane 300 UNIT/3 ML VIAL SC SCH ×2 (08:00→21:42)
[2020-11-23] MEDS: HumaLOG 300 UNITS/3 ML VIAL SC PRN ×3 (08:01→16:32)
[2020-11-23] MEDS: VANCOMYCIN 1.75 GM/350 ML BAG 1.75 GM in Premix Bag 1 BAG IVPB SCH (08:02)
[2020-11-23] MEDS: Micafungin 100 MG in Sodium Chloride 0.9% 100 ML IVPB SCH (08:02)
[2020-11-23] MEDS: Cholecalciferol 1,000 UNITS (25 MCG) TAB PO SCH ×2 (08:07→21:41)
[2020-11-23] MEDS: Cefepime 1 GM in Sodium Chloride 0.9% 100 ML IVPB SCH ×2 (08:11→21:40)
[2020-11-23] MEDS: Dextrose 5% in Water 1,000 ML IV SCH (10:08)
[2020-11-23] MEDS: Lorazepam 2 MG/ML VIAL SLOW IVP PRN ×2 (13:13→16:32)
[2020-11-23] MEDS: Vecuronium 10 MG VIAL IVP PRN ×2 (13:14→16:32)
[2020-11-23] MEDS ORDERED: Fentanyl CADD 100 ML ONE (13:31)
[2020-11-23] MEDS: Fentanyl CADD 100 ML IV SCH (13:35)
[2020-11-23] MEDS ORDERED: Furosemide 100 MG/10 ML VIAL SLOW IVP SCH (14:34)
[2020-11-23] MEDS: Artificial Tear Sol 15 ML BOT EA EYE PRN (16:32)
[2020-11-23] MEDS: Melatonin 3 MG TAB PO SCH (21:41)
[2020-11-23] MEDS: Pantoprazole 40 MG VIAL IVP SCH (21:44)
[2020-11-23] MEDS ORDERED: Sodium Chloride 0.9% (PF) 10 ML VIAL FS PRN (21:45)
[2020-11-24] MEDS: Morphine 4 MG/ML VIAL SLOW IVP PRN ×3 (00:12→08:24)
[2020-11-24] MEDS: Lorazepam 2 MG/ML VIAL SLOW IVP PRN ×7 (00:13→23:47)
[2020-11-24] MEDS ORDERED: Fentanyl CADD 100 ML ONE ×2 (01:56→21:07)
[2020-11-24] MEDS: Fentanyl CADD 100 ML IV SCH ×2 (02:00→21:08)
[2020-11-24] MEDS: Dextrose 5% in Water 1,000 ML IV SCH ×3 (02:50→16:10)
[2020-11-24 04:58] LABS: Mean Corpuscular HGB CONC 31.5 g/dL (32.0-36.0); Mean Corpuscular Hemoglobin 31.8 pg (27.0-31.0); Mean Platelet Volume 11.6 fL (7.4-10.4); Platelet Count 73 thou/uL (130-400); RBC Distribution Width 14.5 % (11.5-14.5); Red Blood Cell (RBC) Count 3.16 mill/uL (4.70-6.10); White Blood Cell (WBC) Count 2.2 thou/uL (4.8-10.8)
[2020-11-24 05:10] LABS: ALT (SGPT) 61 U/L (8-55); AST (SGOT) 29 U/L (5-34); Albumin 2.4 g/dL (3.5-5.0); Alkaline Phosphatase 80 U/L (40-110); Anion Gap 17 mmol/L (10-20); BUN (Urea Nitrogen) 96 mg/dL (8.4-25.7); Bilirubin, Total 0.6 mg/dL (0.2-1.2); Calc. Creatinine Clearance 65 mL/min (70-130); Calcium 7.7 mg/dL (7.8-10.44); Carbon Dioxide 22 mmol/L (22-29); Chloride 109 mmol/L (98-107); Glucose 219 mg/dL (70-105); Potassium 4.1 mmol/L (3.5-5.1); Protein, Total 5.4 g/dL (6.0-8.3); Sodium 144 mmol/L (136-145)
[2020-11-24 05:20] LABS: Band 11 % (5-11); Lymphocytes 12 % (21-51); MDiff Complete? YES; Monocytes 1 % (0-10); Neutrophil 76 % (42-75); Nucleated RBC 1 % (0); Platelet Morphology Comment Appears Decreased
[2020-11-24] MEDS: Amiodarone 450 MG, Admixture Fee 1 EACH in Dextrose 5% in Water 250 ML IVPB SCH ×2 (06:11→23:47)
[2020-11-24] MEDS: HumaLOG 300 UNITS/3 ML VIAL SC PRN ×3 (07:03→16:11)
[2020-11-24] MEDS: Vecuronium 10 MG VIAL IVP PRN ×6 (07:43→23:47)
[2020-11-24] MEDS: Pantoprazole 40 MG VIAL IVP SCH ×2 (07:43→20:58)
[2020-11-24] MEDS: Metoprolol Tartrate 25 MG TAB PER TUBE SCH ×2 (07:44→20:58)
[2020-11-24] MEDS: Ascorbic Acid 500 mg Chewable Tablet PO SCH (07:44)
[2020-11-24] MEDS: Zinc Sulfate 220 MG CAP PO SCH (07:44)
[2020-11-24] MEDS: Cholecalciferol 1,000 UNITS (25 MCG) TAB PO SCH ×2 (07:44→21:03)
[2020-11-24] MEDS: Apixaban 5 MG TAB PER TUBE SCH ×2 (07:45→20:57)
[2020-11-24] MEDS: Micafungin 100 MG in Sodium Chloride 0.9% 100 ML IVPB SCH (07:45)
[2020-11-24] MEDS: NPH, Human Insulin Isophane 300 UNIT/3 ML VIAL SC SCH ×2 (07:45→22:15)
[2020-11-24] MEDS: Artificial Tear Sol 15 ML BOT EA EYE PRN (07:58)
[2020-11-24] MEDS: VANCOMYCIN 1.75 GM/350 ML BAG 1.75 GM in Premix Bag 1 BAG IVPB SCH (08:20)
[2020-11-24] MEDS: Cefepime 1 GM in Sodium Chloride 0.9% 100 ML IVPB SCH ×2 (08:25→21:03)
[2020-11-24 08:26] LABS: Actual Bicarbonate (HCO3a) 22.2 mEq/L (22-28); Base Excess (BEa) -5.4 mEq/L (-2.0 to +3.0); CO2 Tension 52.3 mmHg (35.0-45.0); Calcium, Ionized (arterial) 1.11 mmol/L (1.12-1.30); Carboxyhemoglobin (COHb) 0.9 gm% (0.0-3.0); Hemoglobin (Hb) 12.1 g/dL (14.0-18.0); Potassium - ABG Lab 3.65 mmol/L (3.70-5.30)
[2020-11-24 08:33] LABS: O2 Tension (PaO2), arterial 59.6 mmHg (80.0-100.0); Puncture Site RRA; pH, Arterial 7.25 (7.35-7.45)
[2020-11-24 08:34] LABS: ALV-art Gradient 445.425 mmHg (0-20)
[2020-11-24 08:48] LABS: Vancomycin, Trough 20.6 ug/mL
[2020-11-24] MEDS: Propofol 1,000 MG/100 ML VIAL IV PRN ×3 (09:01→19:20)
[2020-11-24] MEDS: SODIUM CHLORIDE 0.9% IVPB SCH (09:20)
[2020-11-24] MEDS: METHYLPREDNISOLONE SOD SUCC IVPB SCH (09:20)
[2020-11-24] MEDS ORDERED: Morphine 4 MG/ML VIAL SLOW IVP PRN (11:23)
[2020-11-24] MEDS: Melatonin 3 MG TAB PO SCH (20:57)
[2020-11-25] MEDS: Propofol 1,000 MG/100 ML VIAL IV PRN ×4 (00:55→14:49)
[2020-11-25] MEDS: Lorazepam 2 MG/ML VIAL SLOW IVP PRN ×5 (03:34→22:35)
[2020-11-25] MEDS: Vecuronium 10 MG VIAL IVP PRN ×5 (03:34→22:36)
[2020-11-25] MEDS: HumaLOG 300 UNITS/3 ML VIAL SC PRN ×3 (04:39→20:23)
[2020-11-25 04:42] LABS: Band 12 % (5-11); Hemoglobin 10.5 g/dL (14.0-18.0); Hypochromia SLIGHT = 6-15 cells (100X) (0-5/hpf); Lymphocytes 6 % (21-51); MDiff Complete? YES; Mean Corpuscular HGB CONC 31.2 g/dL (32.0-36.0); Mean Corpuscular Hemoglobin 31.9 pg (27.0-31.0); Mean Platelet Volume 11.3 fL (7.4-10.4); Monocytes 4 % (0-10); Neutrophil 78 % (42-75); Platelet Count 103 thou/uL (130-400); Platelet Morphology Comment Appears Decreased; RBC Distribution Width 14.7 % (11.5-14.5); Red Blood Cell (RBC) Count 3.28 mill/uL (4.70-6.10); White Blood Cell (WBC) Count 2.2 thou/uL (4.8-10.8)
[2020-11-25 04:47] LABS: ALT (SGPT) 57 U/L (8-55); AST (SGOT) 21 U/L (5-34); Albumin 2.6 g/dL (3.5-5.0); Alkaline Phosphatase 81 U/L (40-110); Anion Gap 15 mmol/L (10-20); BUN (Urea Nitrogen) 101 mg/dL (8.4-25.7); Bilirubin, Total 0.6 mg/dL (0.2-1.2); Calc. Creatinine Clearance 58 mL/min (70-130); Calcium 7.7 mg/dL (7.8-10.44); Carbon Dioxide 23 mmol/L (22-29); Chloride 106 mmol/L (98-107); Glucose 189 mg/dL (70-105); Potassium 4.3 mmol/L (3.5-5.1); Protein, Total 5.6 g/dL (6.0-8.3); Sodium 140 mmol/L (136-145)
[2020-11-25] MEDS: Dextrose 5% in Water 1,000 ML IV SCH (05:35)
[2020-11-25 07:10] LABS: Actual Bicarbonate (HCO3a) 23.8 mEq/L (22-28); Base Excess (BEa) -5.9 mEq/L (-2.0 to +3.0); Calcium, Ionized (arterial) 1.07 mmol/L (1.12-1.30); Carboxyhemoglobin (COHb) 0.8 gm% (0.0-3.0); Hemoglobin (Hb) 11.3 g/dL (14.0-18.0); Potassium - ABG Lab 4.38 mmol/L (3.70-5.30)
[2020-11-25 08:19] LABS: CO2 Tension 70.8 mmHg (35.0-45.0); O2 Tension (PaO2), arterial 52.6 mmHg (80.0-100.0); Puncture Site RRA; pH, Arterial 7.15 (7.35-7.45)
[2020-11-25 08:46] LABS: Vancomycin, Trough 29.1 ug/mL
[2020-11-25] MEDS ORDERED: Vancomycin 1.5 GRAM/300 ML BAG 1.5 GM in Premix Bag 1 BAG IVPB SCH (09:00)
[2020-11-25] MEDS ORDERED: Vancomycin 1 GM in Premix Bag 1 BAG IVPB SCH (09:15)
[2020-11-25] MEDS: Apixaban 5 MG TAB PER TUBE SCH ×2 (09:15→20:17)
[2020-11-25] MEDS: Cholecalciferol 1,000 UNITS (25 MCG) TAB PO SCH ×2 (09:15→20:18)
[2020-11-25] MEDS: Zinc Sulfate 220 MG CAP PO SCH (09:16)
[2020-11-25] MEDS: Metoprolol Tartrate 25 MG TAB PER TUBE SCH ×2 (09:16→20:20)
[2020-11-25] MEDS: NPH, Human Insulin Isophane 300 UNIT/3 ML VIAL SC SCH ×2 (09:16→20:20)
[2020-11-25] MEDS: Ascorbic Acid 500 mg Chewable Tablet PO SCH (09:16)
[2020-11-25] MEDS: Micafungin 100 MG in Sodium Chloride 0.9% 100 ML IVPB SCH (09:18)
[2020-11-25] MEDS: Pantoprazole 40 MG VIAL IVP SCH ×2 (09:18→20:21)
[2020-11-25] MEDS: METHYLPREDNISOLONE SOD SUCC IVPB SCH (09:19)
[2020-11-25] MEDS: SODIUM CHLORIDE 0.9% IVPB SCH (09:19)
[2020-11-25] MEDS ORDERED: Digoxin 0.5 MG/2 ML AMP SLOW IVP SCH (09:30)
[2020-11-25] MEDS: Cefepime 1 GM in Sodium Chloride 0.9% 100 ML IVPB SCH ×2 (10:35→20:21)
[2020-11-25] MEDS: Amiodarone 450 MG, Admixture Fee 1 EACH in Dextrose 5% in Water 250 ML IVPB SCH (14:49)
[2020-11-25] MEDS: Melatonin 3 MG TAB PO SCH (20:18)
[2020-11-25] MEDS ORDERED: Sterile Water 10 ML ONE (22:28)
[2020-11-25] MEDS ORDERED: Fentanyl CADD 100 ML ONE (22:29)
[2020-11-25] MEDS: Fentanyl CADD 100 ML IV SCH (22:36)
[2020-11-26] MEDS: Propofol 1,000 MG/100 ML VIAL IV PRN ×6 (01:08→20:43)
[2020-11-26] MEDS ORDERED: Sterile Water 10 ML ONE (03:18)
[2020-11-26] MEDS: Lorazepam 2 MG/ML VIAL SLOW IVP PRN ×5 (03:20→22:09)
[2020-11-26] MEDS: Vecuronium 10 MG VIAL IVP PRN ×5 (03:21→22:09)
[2020-11-26 04:09] LABS: Mean Corpuscular HGB CONC 30.6 g/dL (32.0-36.0); Mean Corpuscular Hemoglobin 30.7 pg (27.0-31.0); Mean Platelet Volume 7.7 fL (7.4-10.4); Platelet Count 80 thou/uL (130-400); RBC Distribution Width 14.5 % (11.5-14.5); Red Blood Cell (RBC) Count 3.26 mill/uL (4.70-6.10); White Blood Cell (WBC) Count 1.7 thou/uL (4.8-10.8)
[2020-11-26 04:26] LABS: ALT (SGPT) 128 U/L (8-55); AST (SGOT) 46 U/L (5-34); Albumin 2.3 g/dL (3.5-5.0); Alkaline Phosphatase 86 U/L (40-110); Anion Gap 15 mmol/L (10-20); BUN (Urea Nitrogen) 110 mg/dL (8.4-25.7); Bilirubin, Total 0.9 mg/dL (0.2-1.2); Calc. Creatinine Clearance 53 mL/min (70-130); Calcium 7.6 mg/dL (7.8-10.44); Carbon Dioxide 21 mmol/L (22-29); Chloride 106 mmol/L (98-107); Globulin 2.9 g/dL (2.4-3.5); Glucose 148 mg/dL (70-105); Potassium 4.4 mmol/L (3.5-5.1); Protein, Total 5.2 g/dL (6.0-8.3); Sodium 138 mmol/L (136-145)
[2020-11-26 04:41] LABS: Band 6 % (5-11); Lymphocytes 14 % (21-51); MDiff Complete? YES; Metamyelocyte 4 % (0-0); Monocytes 3 % (0-10); Neutrophil 73 % (42-75); Platelet Morphology Comment Appears Decreased
[2020-11-26] MEDS: Dextrose 5% in Water 1,000 ML IV SCH (05:10)
[2020-11-26] MEDS: Amiodarone 450 MG, Admixture Fee 1 EACH in Dextrose 5% in Water 250 ML IVPB SCH ×2 (05:10→23:13)
[2020-11-26] MEDS: SODIUM CHLORIDE 0.9% IVPB SCH (05:11)
[2020-11-26] MEDS: METHYLPREDNISOLONE SOD SUCC IVPB SCH (05:11)
[2020-11-26 07:08] LABS: Actual Bicarbonate (HCO3a) 21.7 mEq/L (22-28); CO2 Tension 42.4 mmHg (35.0-45.0); Calcium, Ionized (arterial) 1.03 mmol/L (1.12-1.30); Carboxyhemoglobin (COHb) 0.1 gm% (0.0-3.0); Hemoglobin (Hb) 9.1 g/dL (14.0-18.0); Potassium - ABG Lab 4.31 mmol/L (3.70-5.30); pH, Arterial 7.33 (7.35-7.45)
[2020-11-26 07:10] LABS: O2 Tension (PaO2), arterial 49.8 mmHg (80.0-100.0); Puncture Site RRA
[2020-11-26] MEDS: Micafungin 100 MG in Sodium Chloride 0.9% 100 ML IVPB SCH (09:40)
[2020-11-26] MEDS: Cholecalciferol 1,000 UNITS (25 MCG) TAB PO SCH ×2 (09:40→20:47)
[2020-11-26] MEDS: Ascorbic Acid 500 mg Chewable Tablet PO SCH (09:41)
[2020-11-26] MEDS: Apixaban 5 MG TAB PER TUBE SCH ×2 (09:41→20:48)
[2020-11-26] MEDS: Cefepime 1 GM in Sodium Chloride 0.9% 100 ML IVPB SCH ×2 (09:41→20:43)
[2020-11-26] MEDS: Zinc Sulfate 220 MG CAP PO SCH (09:41)
[2020-11-26] MEDS: Metoprolol Tartrate 25 MG TAB PER TUBE SCH ×2 (09:41→20:48)
[2020-11-26] MEDS: NPH, Human Insulin Isophane 300 UNIT/3 ML VIAL SC SCH ×2 (09:42→20:45)
[2020-11-26] MEDS: Pantoprazole 40 MG VIAL IVP SCH ×2 (09:42→20:45)
[2020-11-26 10:42] LABS: Vancomycin, Random 22.9 ug/mL (See Comment)
[2020-11-26] MEDS: WATER IVPB SCH (16:54)
[2020-11-26] MEDS: PENTAMIDINE IVPB SCH (16:54)
[2020-11-26] MEDS: DEXTROSE 5% IVPB SCH (16:54)
[2020-11-26] MEDS: Melatonin 3 MG TAB PO SCH (20:48)
[2020-11-27] MEDS ORDERED: Fentanyl CADD 100 ML ONE (00:55)
[2020-11-27] MEDS: Fentanyl CADD 100 ML IV SCH (01:27)
[2020-11-27] MEDS: Dextrose 5% in Water 1,000 ML IV SCH (01:27)
[2020-11-27] MEDS ORDERED: Sterile Water 10 ML ONE (03:45)
[2020-11-27] MEDS: Lorazepam 2 MG/ML VIAL SLOW IVP PRN ×3 (03:48→21:44)
[2020-11-27] MEDS: Vecuronium 10 MG VIAL IVP PRN ×3 (03:49→21:44)
[2020-11-27 04:27] LABS: ALT (SGPT) 93 U/L (8-55); AST (SGOT) 25 U/L (5-34); Albumin 2.3 g/dL (3.5-5.0); Alkaline Phosphatase 93 U/L (40-110); Anion Gap 17 mmol/L (10-20); Bilirubin, Total 0.6 mg/dL (0.2-1.2); Calc. Creatinine Clearance 53 mL/min (70-130); Calcium 7.3 mg/dL (7.8-10.44); Carbon Dioxide 18 mmol/L (22-29); Chloride 106 mmol/L (98-107); Globulin 2.8 g/dL (2.4-3.5); Glucose 191 mg/dL (70-105); Potassium 4.4 mmol/L (3.5-5.1); Protein, Total 5.1 g/dL (6.0-8.3); Sodium 137 mmol/L (136-145)
[2020-11-27] MEDS: Propofol 1,000 MG/100 ML VIAL IV PRN ×4 (04:34→22:45)
[2020-11-27] MEDS: HumaLOG 300 UNITS/3 ML VIAL SC PRN ×4 (04:34→21:56)
[2020-11-27 04:38] LABS: BUN (Urea Nitrogen) 108 mg/dL (8.4-25.7)
[2020-11-27 04:42] LABS: Band 28 % (5-11); Hemoglobin 9.1 g/dL (14.0-18.0); Hypochromia SLIGHT = 6-15 cells (100X) (0-5/hpf); Lymphocytes 4 % (21-51); MDiff Complete? YES; Mean Corpuscular HGB CONC 32.7 g/dL (32.0-36.0); Mean Corpuscular Hemoglobin 32.6 pg (27.0-31.0); Mean Corpuscular Volume 99.7 fL (78.0-98.0); Mean Platelet Volume 11.6 fL (7.4-10.4); Monocytes 2 % (0-10); Neutrophil 66 % (42-75); Platelet Count 82 thou/uL (130-400); Platelet Morphology Comment Appears Decreased; RBC Distribution Width 14.7 % (11.5-14.5); Red Blood Cell (RBC) Count 2.78 mill/uL (4.70-6.10); White Blood Cell (WBC) Count 3.5 thou/uL (4.8-10.8)
[2020-11-27 07:04] LABS: Actual Bicarbonate (HCO3a) 18.3 mEq/L (22-28); Base Excess (BEa) -8.7 mEq/L (-2.0 to +3.0); CO2 Tension 44.3 mmHg (35.0-45.0); Calcium, Ionized (arterial) 1.05 mmol/L (1.12-1.30); Carboxyhemoglobin (COHb) 0.7 gm% (0.0-3.0); Hemoglobin (Hb) 10.3 g/dL (14.0-18.0); Potassium - ABG Lab 4.38 mmol/L (3.70-5.30)
[2020-11-27 07:05] LABS: ALV-art Gradient 614.825 mmHg (0-20); O2 Tension (PaO2), arterial 42.8 mmHg (80.0-100.0); Puncture Site RRA; pH, Arterial 7.24 (7.35-7.45)
[2020-11-27] MEDS ORDERED: Labetalol HCl 100 MG/20 ML VIAL SLOW IVP PRN (07:32)
[2020-11-27] MEDS: Metoprolol Tartrate 25 MG TAB PER TUBE SCH ×2 (08:11→20:26)
[2020-11-27] MEDS: Apixaban 5 MG TAB PER TUBE SCH ×2 (08:11→20:25)
[2020-11-27] MEDS: Sodium Bicarbonate 140 MEQ in Dextrose 5% in Water 1,000 ML IV SCH (08:11)
[2020-11-27] MEDS: Pantoprazole 40 MG VIAL IVP SCH ×2 (08:11→20:27)
[2020-11-27] MEDS: Cholecalciferol 1,000 UNITS (25 MCG) TAB PO SCH ×2 (08:12→20:26)
[2020-11-27] MEDS: Ascorbic Acid 500 mg Chewable Tablet PO SCH ×2 (08:12→20:26)
[2020-11-27] MEDS: NPH, Human Insulin Isophane 300 UNIT/3 ML VIAL SC SCH ×2 (08:18→21:54)
[2020-11-27] MEDS: Cefepime 1 GM in Sodium Chloride 0.9% 100 ML IVPB SCH ×2 (08:24→21:53)
[2020-11-27] MEDS: Micafungin 100 MG in Sodium Chloride 0.9% 100 ML IVPB SCH (08:24)
[2020-11-27] MEDS: SODIUM CHLORIDE 0.9% IVPB SCH (08:42)
[2020-11-27] MEDS: METHYLPREDNISOLONE SOD SUCC IVPB SCH (08:42)
[2020-11-27 09:35] LABS: Vancomycin, Random 15.4 ug/mL (See Comment)
[2020-11-27] MEDS: Vancomycin 1 GM in Premix Bag 1 BAG IVPB SCH (11:41)
[2020-11-27] MEDS: Amiodarone 450 MG, Admixture Fee 1 EACH in Dextrose 5% in Water 250 ML IVPB SCH (16:59)
[2020-11-27] MEDS: WATER IVPB SCH (17:26)
[2020-11-27] MEDS: PENTAMIDINE IVPB SCH (17:26)
[2020-11-27] MEDS: DEXTROSE 5% IVPB SCH (17:26)
[2020-11-27] MEDS: Melatonin 3 MG TAB PO SCH (20:25)
[2020-11-27] MEDS: Amiodarone 200 MG TAB PO SCH (20:26)
[2020-11-28] MEDS: Dextrose 5% in Water 1,000 ML IV SCH ×2 (01:46→19:36)
[2020-11-28] MEDS: Vecuronium 10 MG VIAL IVP PRN ×6 (02:10→23:42)
[2020-11-28] MEDS: Propofol 1,000 MG/100 ML VIAL IV PRN ×5 (03:41→20:56)
[2020-11-28] MEDS: HumaLOG 300 UNITS/3 ML VIAL SC PRN ×2 (03:53→10:50)
[2020-11-28 04:45] LABS: ALT (SGPT) 80 U/L (8-55); AST (SGOT) 24 U/L (5-34); Albumin 2.4 g/dL (3.5-5.0); Alkaline Phosphatase 102 U/L (40-110); Anion Gap 18 mmol/L (10-20); Bilirubin, Total 0.6 mg/dL (0.2-1.2); Calc. Creatinine Clearance 51 mL/min (70-130); Calcium 7.2 mg/dL (7.8-10.44); Carbon Dioxide 21 mmol/L (22-29); Chloride 103 mmol/L (98-107); Globulin 2.9 g/dL (2.4-3.5); Glucose 179 mg/dL (70-105); Hemoglobin 8.8 g/dL (14.0-18.0); Mean Corpuscular HGB CONC 32.9 g/dL (32.0-36.0); Mean Corpuscular Hemoglobin 32.3 pg (27.0-31.0); Mean Corpuscular Volume 98.4 fL (78.0-98.0); Mean Platelet Volume 11.9 fL (7.4-10.4); Platelet Count 80 thou/uL (130-400); Potassium 4.8 mmol/L (3.5-5.1); Protein, Total 5.3 g/dL (6.0-8.3); Red Blood Cell (RBC) Count 2.71 mill/uL (4.70-6.10); Sodium 137 mmol/L (136-145); White Blood Cell (WBC) Count 5.3 thou/uL (4.8-10.8)
[2020-11-28 04:56] LABS: BUN (Urea Nitrogen) 119 mg/dL (8.4-25.7)
[2020-11-28] MEDS: Lorazepam 2 MG/ML VIAL SLOW IVP PRN ×6 (04:59→23:42)
[2020-11-28] MEDS ORDERED: Fentanyl CADD 100 ML ONE (05:17)
[2020-11-28] MEDS: Fentanyl CADD 100 ML IV SCH (05:20)
[2020-11-28 06:01] LABS: Lymphocytes 2 % (21-51); MDiff Complete? YES; Metamyelocyte 1 % (0-0); Monocytes 2 % (0-10); Neutrophil 95 % (42-75); Platelet Morphology Comment Appears Decreased
[2020-11-28 06:20] VITALS: BMI 43.5
[2020-11-28] MEDS: Sodium Bicarbonate 140 MEQ in Dextrose 5% in Water 1,000 ML IV SCH (07:19)
[2020-11-28 07:33] LABS: Actual Bicarbonate (HCO3a) 21.3 mEq/L (22-28); Base Excess (BEa) -7.3 mEq/L (-2.0 to +3.0); CO2 Tension 59.1 mmHg (35.0-45.0); Calcium, Ionized (arterial) 0.99 mmol/L (1.12-1.30); Carboxyhemoglobin (COHb) 1.2 gm% (0.0-3.0); Potassium - ABG Lab 4.66 mmol/L (3.70-5.30)
[2020-11-28 07:43] LABS: O2 Tension (PaO2), arterial 47.2 mmHg (80.0-100.0); pH, Arterial 7.18 (7.35-7.45)
[2020-11-28] MEDS: Pantoprazole 40 MG VIAL IVP SCH ×2 (08:31→20:58)
[2020-11-28] MEDS: Apixaban 5 MG TAB PER TUBE SCH ×2 (08:32→20:57)
[2020-11-28] MEDS: Cholecalciferol 1,000 UNITS (25 MCG) TAB PO SCH ×2 (08:32→21:00)
[2020-11-28] MEDS: Amiodarone 200 MG TAB PO SCH ×2 (08:32→20:57)
[2020-11-28] MEDS: Metoprolol Tartrate 25 MG TAB PER TUBE SCH ×2 (08:32→22:45)
[2020-11-28] MEDS: Ascorbic Acid 500 mg Chewable Tablet PO SCH ×2 (08:32→20:57)
[2020-11-28] MEDS: Micafungin 100 MG in Sodium Chloride 0.9% 100 ML IVPB SCH (08:33)
[2020-11-28] MEDS: NPH, Human Insulin Isophane 300 UNIT/3 ML VIAL SC SCH ×2 (08:34→21:35)
[2020-11-28] MEDS ORDERED: Heparin 10,000 UNITS/ 10 ML VIAL ONE (08:44)
[2020-11-28] MEDS: Cefepime 1 GM in Sodium Chloride 0.9% 100 ML IVPB SCH ×2 (09:26→21:36)
[2020-11-28] MEDS: Vancomycin 1 GM in Premix Bag 1 BAG IVPB SCH (09:27)
[2020-11-28 10:58] LABS: Hep C IgG Ab Non-Reactive (NonReactive); Hep C Index 0.06 S/CO (0-0.79)
[2020-11-28 10:59] LABS: HBSAB Concentration Less than 8.00 mIU/mL; Hep B Surf AB Non-Reactive (NonReactive)
[2020-11-28 11:00] LABS: HBSAg Index 0.14 S/CO (0-0.99); Hep B Core Total Ab Non-Reactive (NonReactive); Hep B Core Total Index 0.06 S/CO (0-0.79); Hep B Surf Ag Non-Reactive S/CO (NonReactive)
[2020-11-28] MEDS: DEXTROSE 5% IVPB SCH (16:57)
[2020-11-28] MEDS: PENTAMIDINE IVPB SCH (16:57)
[2020-11-28] MEDS: WATER IVPB SCH (16:57)
[2020-11-28] MEDS: Melatonin 3 MG TAB PO SCH (20:58)
[2020-11-29] MEDS ORDERED: Norepinephrine 8 MG/0.9% NS 250 ML ONE (02:21)
[2020-11-29] MEDS ORDERED: Norepinephrine 8 MG/0.9% NS 250 ML IVPB SCH (02:45)
[2020-11-29 05:02] LABS: ALT (SGPT) 78 U/L (8-55); AST (SGOT) 27 U/L (5-34); Albumin 2.5 g/dL (3.5-5.0); Alkaline Phosphatase 136 U/L (40-110); Anion Gap 17 mmol/L (10-20); BUN (Urea Nitrogen) 117 mg/dL (8.4-25.7); Bilirubin, Total 0.6 mg/dL (0.2-1.2); Calc. Creatinine Clearance 50 mL/min (70-130); Calcium 6.8 mg/dL (7.8-10.44); Carbon Dioxide 24 mmol/L (22-29); Chloride 97 mmol/L (98-107); Globulin 2.7 g/dL (2.4-3.5); Glucose 188 mg/dL (70-105); Potassium 5.1 mmol/L (3.5-5.1); Protein, Total 5.2 g/dL (6.0-8.3); Sodium 133 mmol/L (136-145)
[2020-11-29] MEDS: HumaLOG 300 UNITS/3 ML VIAL SC PRN ×2 (05:13→16:41)
[2020-11-29] MEDS: Vecuronium 10 MG VIAL IVP PRN ×2 (05:13→12:22)
[2020-11-29 05:30] LABS: Anisocytosis SLIGHT = 6-15 cells (100X) (0-5/hpf); Band 28 % (5-11); Hemoglobin 8.6 g/dL (14.0-18.0); Lymphocytes 4 % (21-51); MDiff Complete? YES; Mean Corpuscular HGB CONC 32.3 g/dL (32.0-36.0); Mean Corpuscular Hemoglobin 31.6 pg (27.0-31.0); Mean Corpuscular Volume 97.6 fL (78.0-98.0); Mean Platelet Volume 12.5 fL (7.4-10.4); Metamyelocyte 1 % (0-0); Monocytes 2 % (0-10); Myelocyte 4 % (0-0); Neutrophil 61 % (42-75); Nucleated RBC 4 % (0); Platelet Count 117 thou/uL (130-400); Platelet Morphology Comment Appears Decreased; RBC Distribution Width 15.2 % (11.5-14.5); Red Blood Cell (RBC) Count 2.74 mill/uL (4.70-6.10); White Blood Cell (WBC) Count 12.2 thou/uL (4.8-10.8)
[2020-11-29] MEDS ORDERED: Fentanyl CADD 100 ML ONE (05:49)
[2020-11-29] MEDS: Fentanyl CADD 100 ML IV SCH (05:51)
[2020-11-29] MEDS: Sodium Bicarbonate 140 MEQ in Dextrose 5% in Water 1,000 ML IV SCH (06:22)
[2020-11-29] MEDS: Propofol 1,000 MG/100 ML VIAL IV PRN ×2 (06:24→12:00)
[2020-11-29 07:23] LABS: Actual Bicarbonate (HCO3a) 23.2 mEq/L (22-28); Base Excess (BEa) -5.9 mEq/L (-2.0 to +3.0); Calcium, Ionized (arterial) 0.91 mmol/L (1.12-1.30); Hemoglobin (Hb) 8.7 g/dL (14.0-18.0)
[2020-11-29 07:28] LABS: pH, Arterial 7.15 (7.35-7.45)
[2020-11-29 07:29] LABS: ALV-art Gradient 583.225 mmHg (0-20); CO2 Tension 68.7 mmHg (35.0-45.0); O2 Tension (PaO2), arterial 43.9 mmHg (80.0-100.0); Peep/CPAP 12.5 cmH2O; Puncture Site RRA
[2020-11-29] MEDS ORDERED: Heparin 10,000 UNITS/ 10 ML VIAL ONE (08:42)
[2020-11-29] MEDS: Micafungin 100 MG in Sodium Chloride 0.9% 100 ML IVPB SCH (09:05)
[2020-11-29] MEDS: Ascorbic Acid 500 mg Chewable Tablet PO SCH (09:05)
[2020-11-29] MEDS: Pantoprazole 40 MG VIAL IVP SCH (09:05)
[2020-11-29] MEDS: Apixaban 5 MG TAB PER TUBE SCH (09:06)
[2020-11-29] MEDS: Amiodarone 200 MG TAB PO SCH (09:06)
[2020-11-29] MEDS: Metoprolol Tartrate 25 MG TAB PER TUBE SCH (09:06)
[2020-11-29] MEDS: Cholecalciferol 1,000 UNITS (25 MCG) TAB PO SCH (09:06)
[2020-11-29 10:29] LABS: Vancomycin, Trough 28.6 ug/mL
[2020-11-29] MEDS: NPH, Human Insulin Isophane 300 UNIT/3 ML VIAL SC SCH (10:38)
[2020-11-29] MEDS ORDERED: Vancomycin 1 GM in Premix Bag 1 BAG IVPB SCH (11:00)
[2020-11-29] MEDS: Cefepime 1 GM in Sodium Chloride 0.9% 100 ML IVPB SCH (11:10)
[2020-11-29] MEDS: METHYLPREDNISOLONE SOD SUCC IVPB SCH (12:00)
[2020-11-29] MEDS: SODIUM CHLORIDE 0.9% IVPB SCH (12:00)
[2020-11-29] MEDS: Dextrose 5% in Water 1,000 ML IV SCH (12:01)
[2020-11-29 14:57] VITALS: BP 144/79
[2020-11-29] MEDS: DEXTROSE 5% IVPB SCH (17:55)
[2020-11-29] MEDS: PENTAMIDINE IVPB SCH (17:55)
[2020-11-29] MEDS: WATER IVPB SCH (17:55)
[2020-11-29 19:48] VITALS: TEMP 97.7
== END 2020-11-29 19:03 | disposition expired | DRG 207 ==
LOC: ERS 13:01 → IMCU/EMU 15:20 → CCU 11-10 17:00
PROVIDERS: ADMIT Family Medicine; ATTEND Family Medicine
PROC: 8E0ZXY6 Isolation (ICD-10-PCS; principal; 2020-11-07)
PROC: 5A09457 Assistance with Respiratory Ventilation, 24-96 Consecutive Hours, Continuous Positive Airway Pressure (ICD-10-PCS; 2020-11-07)
PROC: 5A1955Z Respiratory Ventilation, Greater than 96 Consecutive Hours (ICD-10-PCS; 2020-11-11)
PROC: XW033E5 Introduction of Remdesivir Anti-infective into Peripheral Vein, Percutaneous Approach, New Technology Group 5 (ICD-10-PCS; 2020-11-11)
PROC: 0BH17EZ Insertion of Endotracheal Airway into Trachea, Via Natural or Artificial Opening (ICD-10-PCS; 2020-11-11)
PROC: 0D9670Z Drainage of Stomach with Drainage Device, Via Natural or Artificial Opening (ICD-10-PCS; 2020-11-11)
PROC: 02HV33Z Insertion of Infusion Device into Superior Vena Cava, Percutaneous Approach (ICD-10-PCS; 2020-11-22)
PROC: B548ZZA Ultrasonography of Superior Vena Cava, Guidance (ICD-10-PCS; 2020-11-22)
PROC: 0B9J8ZX Drainage of Left Lower Lung Lobe, Via Natural or Artificial Opening Endoscopic, Diagnostic (ICD-10-PCS; 2020-11-26)
PROC: 0B9D8ZX Drainage of Right Middle Lung Lobe, Via Natural or Artificial Opening Endoscopic, Diagnostic (ICD-10-PCS; 2020-11-26)
PROC: 06HY33Z Insertion of Infusion Device into Lower Vein, Percutaneous Approach (ICD-10-PCS; 2020-11-28)
PROC: 5A1D70Z Performance of Urinary Filtration, Intermittent, Less than 6 Hours Per Day (ICD-10-PCS; 2020-11-28)
PROC: 3E033XZ Introduction of Vasopressor into Peripheral Vein, Percutaneous Approach (ICD-10-PCS; 2020-11-29)
DX: U07.1 COVID-19 (principal); J80 Acute respiratory distress syndrome; J12.82 Pneumonia due to coronavirus disease 2019; A41.89 Other specified sepsis; N17.9 Acute kidney failure, unspecified; E87.2 Acidosis; Z68.41 Body mass index [BMI] 40.0-44.9, adult; Z99.11 Dependence on respirator [ventilator] status; B37.49 Other urogenital candidiasis; D61.818 Other pancytopenia; E87.0 Hyperosmolality and hypernatremia; T86.12 Kidney transplant failure; Z66 Do not resuscitate; E66.01 Morbid (severe) obesity due to excess calories; I48.0 Paroxysmal atrial fibrillation; R73.9 Hyperglycemia, unspecified; T38.0X5A Adverse effect of glucocorticoids and synthetic analogues, initial encounter; E87.5 Hyperkalemia; E87.70 Fluid overload, unspecified; Z79.52 Long term (current) use of systemic steroids; Z79.899 Other long term (current) drug therapy; Z78.1 Physical restraint status; R00.0 Tachycardia, unspecified; I13.10 Hypertensive heart and chronic kidney disease without heart failure, with stage 1 through stage 4 chronic kidney disease, or unspecified chronic kidney disease; N18.32 Chronic kidney disease, stage 3b
CPT/HCPCS: 0240U; 31624; 36415; 36416; 36569; 36600; 71045; 80053; 80076; 80202; 81001; 82550; 82553; 82805; 83605; 83735; 83880; 84439; 84443; 84481; 84484; 85007; 85025; 85027; 85379; 85520; 86140; 86704; 86706; 86803; 87040; 87070; 87077; 87086; 87103; 87186; 87205; 87340; 88112; 88312; 90935; 93005; 93010; 93306; 94002; 94003; 94642; 94660; 94799; 96365; 96366; 96367; 96375; C1751; C9113; G0257; J0282; J0692; J1100; J1160; J1642; J1644; J1650; J1815; J1940; J2060; J2248; J2270; J2704; J2930; J3010; J3370; J3490; J7050; J7070; J7500